=== PATIENT | female | born 1970 | race Caucasian/White ===

== ENCOUNTER → 2017-08-02 | Outpatient (CLI) | payer OTHER ==
[2017-08-02 10:22] LABS: ESTIMATED AVERAGE GLUCOSE 100 mg/dl; HA1C FLAG Normal (Normal)
[2017-08-02 10:30] LABS: BLOOD UREA NITROGEN 14 mg/dl (7-18); BUN/CREATININE RATIO 16.7 (10-20); CALCIUM 8.8 mg/dl (8.5-10.1); CARBON DIOXIDE 26 mmol/L (21-32); CHLORIDE 107 mmol/L (98-107); CREATININE 0.82 mg/dl (0.60-1.20); GLUCOSE 87 mg/dl (70-99); POTASSIUM 4.1 mmol/L (3.5-5.1); SODIUM 136 mmol/L (136-145)
== END | disposition home or self-care (01) ==
LOC: C.LAB1850 07:13
PROVIDERS: ATTEND Family Medicine
DX: R73.9 Hyperglycemia, unspecified (principal)

== ENCOUNTER 2019-06-13 15:02 | Inpatient (IN) ==
[2019-06-13] MEDS ORDERED: SODIUM CHLORIDE 0.9% 1000ML 1,000 ML IV ONE (15:34)
[2019-06-13] MEDS ORDERED: ONDANSETRON INJ 2 MG/ML 2 ML VIAL IV STA (15:34)
--- NOTE | 2019-06-13 15:39 | Emergency Department Note ---
History of Present Illness General Chief complaint: Abdominal Pain Stated complaint: SEVERE STOMACH PAIN, NAUSEA, VOMITING, CHILLS Time Seen by Provider: 06/13/19 15:26 History of Present Illness Maximum Pain Intensity: 6 This 49-year-old female presents the ER with chief complaint of nausea and vomiting which started this afternoon after she went home from work. Patient states that she left work around 130 when she went outside she felt hot and clammy. She states that she went home and had some abdominal cramping and had one bowel movement and got nauseated and vomited. The patient has not vomited since that time. The patient states that she had a similar episode on Sunday. Patient denies any history of heartburn or reflux. The patient states that her stomach is usually like "iron" she does admit that she was on Tamiflu last week for influenza. Home Medications Home Medications Medication Instructions Recorded Confirmed Type metformin 500 mg tablet 500 mg PO DAILY #90 tab 05/22/19 06/13/19 Rx multivitamin,[id number] 1 tab PO DAILY 06/04/19 06/13/19 History tablet Allergies Allergy/AdvReac Type Severity Reaction Status Date / Time [id number] Allergy Unknown Unknown Uncoded 06/13/19 15:57 Past Med/Surg History Family History Mother Diabetes Father Multiple sclerosis Social History Preferred Language: Stateless Communication Ability: Effective Visual Impairment: No Limitations Hearing Ability: Normal marital status: Single Current Living Situation: Significant Other current occupational status: employed current occupation: DIRECTOR MANAGEMENT Feels Safe at Home: Yes Smoking Status: Current some day smoker Tobacco Type: cigars ; Age Started Using Tobacco: 47 ; Cigarettes Per Day: TWICE A WEEK ; Hx Alcohol Use: Yes Alcohol type: hard liquor Alcohol Intake Frequency: Weekly Hx Substance Use: No Childhood Exposure to Second-Hand Smoke: Yes Dental Care, Regularly: Yes Physical Activity Frequency: Does not Exercise Seatbelt Use: always Sunscreen Use: Yes Review of Systems A total of 10 systems reviewed and were otherwise negative Physical Exam Vital Signs Vital Signs - 24 hr 06/13/19 15:13 06/13/19 15:49 06/13/19 17:03 Temperature 36.4 C L Temperature Source Oral Sepsis Recent Fever Within 48 Hours No Sepsis Action Taken by Nursing No Action Required Pulse Rate 76 76 Pulse Rate [Apical] 77 Pulse Rate from SpO2 Sensor Pulse Rhythm Regular Pulse Rhythm [Apical] Regular Respiratory Rate 18 18 20 Respiratory Effort / Characteristics Non-Labored Spontaneous Non-Labored Respiratory Depth Normal Normal Respiratory Pattern Regular Blood Pressure 158/104 H Blood Pressure [Right Arm] 129/81 Blood Pressure Mean 122 Blood Pressure Mean [Right Arm] 97 Blood Pressure Position Sitting Pulse Oximetry 98 98 96 Oxygen Delivery Method Room Air Room Air Room Air 06/13/19 18:11 06/13/19 18:30 06/13/19 19:00 Temperature Temperature Source Sepsis Recent Fever Within 48 Hours Sepsis Action Taken by Nursing Pulse Rate 80 79 76 Pulse Rate [Apical] Pulse Rate from SpO2 Sensor 78 76 75 Pulse Rhythm Pulse Rhythm [Apical] Respiratory Rate 21 20 20 Respiratory Effort / Characteristics Respiratory Depth Respiratory Pattern Blood Pressure 133/83 126/87 133/88 Blood Pressure [Right Arm] Blood Pressure Mean 99 100 103 Blood Pressure Mean [Right Arm] Blood Pressure Position Pulse Oximetry 94 95 96 Oxygen Delivery Method Room Air 06/13/19 19:31 Temperature Temperature Source Sepsis Recent Fever Within 48 Hours Sepsis Action Taken by Nursing Pulse Rate 80 Pulse Rate [Apical] Pulse Rate from SpO2 Sensor 79 Pulse Rhythm Pulse Rhythm [Apical] Respiratory Rate 24 Respiratory Effort / Characteristics Respiratory Depth Respiratory Pattern Blood Pressure 152/97 H Blood Pressure [Right Arm] Blood Pressure Mean 115 Blood Pressure Mean [Right Arm] Blood Pressure Position Pulse Oximetry 99 Oxygen Delivery Method GENERAL: 49-year-old female appears in no acute distress. MENTAL Status: Alert and oriented x3. MOUTH: Mucosa is moist NECK: Supple, no lymphadenopathy noted. No carotid bruits noted. LUNGS: Clear auscultation without wheezes rales or rhonchi. CARDIAC: Regular rate and rhythm without murmur. Pulses is full and equal throughout. BACK: No CVA tenderness noted. ABDOMEN: Positive bowel sounds all 4 quadrants. Soft, tenderness palpation in the epigastric region otherwise nontender to palpation without organomegaly or masses. EXTREMITIES: No cyanosis or edema noted. Course Administered Medications Ioversol (Optiray 320 100ml) 93 ml IV ONCE PRN PRN Reason: Interaction Checking Stop: 06/17/19 19:29 Last Admin: 06/13/19 19:32 Dose: 93 ml Documented by: [id number] Discontinued Medications Sodium Chloride (Nss 1000ml) 1,000 mls @ 999 mls/hr IV .Q1H1M ONE Stop: 06/13/19 16:34 Last Infusion: 06/13/19 16:50 Dose: 0 mls/hr Documented by: [id number] Admin: 06/13/19 15:42 Dose: 999 mls/hr Documented by: [id number] Ondansetron HCl (Zofran) 4 mg IV NOW STA Stop: 06/13/19 15:35 Last Admin: 06/13/19 15:42 Dose: 4 mg Documented by: [id number] Medical Decision Making Differential Diagnosis Gastritis, GERD, peptic ulcer disease Medical Records Attestation: I reviewed the patient's medical records. Home Medications Current Medication List: was personally reviewed by me Laboratory Data Attestation: I reviewed the patient's lab results. Result diagrams: 06/13/19 15:41 06/13/19 15:41 Lab Results 06/13/19 06/13/19 06/13/19 Range/Units 15:41 15:41 16:25 WBC 21.08 H (4.8-10.8) K/uL RBC 4.65 (4.2-5.4) M/uL Hgb 14.6 (12.0-16.0) g/dL Hct 41.8 (37-47) % MCV 89.9 (80-100) fL MCH 31.4 (25-34) pg MCHC 34.9 (32-36) g/dL RDW Std Deviation 43.0 (36.4-46.3) fL RDW Coeff of Gem 13.2 (11.5-14.5) % Plt Count 351 (130-400) K/uL MPV 9.1 (7.4-10.4) fL Immature Gran % (Auto) 0.3 % Neut % (Auto) 84.9 % Lymph % (Auto) 10.1 % [place] % (Auto) 4.0 % Eos % (Auto) 0.6 % Baso % (Auto) 0.1 % Immature Gran # (Auto) 0.07 H (0.00-0.02) K/uL Neut # (Auto) 17.88 H (1.4-6.5) K/uL Lymph # (Auto) 2.13 (1.2-3.4) K/uL [place] # (Auto) 0.85 H (0.11-0.59) K/uL Eos # (Auto) 0.12 (0-0.5) K/uL Baso # (Auto) 0.03 (0-0.2) K/uL Sodium 139 (136-145) mmol/L Potassium 3.9 (3.5-5.1) mmol/L Chloride 109 H (98-107) mmol/L Carbon Dioxide 26 (21-32) mmol/L Anion Gap 4.0 (3-11) BUN 24 H (7-18) mg/dl Creatinine 1.17 (0.6-1.2) mg/dl Est Cr Clr Drug Dosing 76.7 ml/min Est GFR ( Amer) 64.3 Est GFR (Non-Af Amer) 55.4 BUN/Creatinine Ratio 20.3 H (10-20) Glucose 110 H (70-99) mg/dl Calcium 9.0 (8.5-10.1) mg/dl Total Bilirubin 0.4 (0.2-1) mg/dl AST 83 H (15-37) U/L ALT 57 (12-78) U/L Alkaline Phosphatase 78 (45-117) U/L Total Protein 7.6 (6.4-8.2) gm/dl Albumin 3.5 (3.4-5.0) gm/dl Globulin 4.1 H (2.5-4.0) gm/dl Albumin/Globulin Ratio 0.9 (0.9-2) Lipase 139 (73-393) U/L Urine Color Yellow Urine Appearance Clear (Clear) Urine pH 5.5 (4.5-7.5) Ur Specific [place] 1.020 (1.000-1.030) Urine Protein Trace H (Negative) Urine Glucose (UA) Negative (Negative) Urine Ketones Negative (Negative) Urine Blood 1+ H (Negative) Urine Nitrite Negative (Negative) Urine Bilirubin Negative (Negative) Urine Urobilinogen Negative (Negative) Ur Leukocyte Esterase Negative (Negative) Urine RBC 0-4 (0-4) /hpf Urine WBC 0-5 (0-5) /hpf Ur Epithelial Cells >30 H (0-5) /lpf Urine Crystals Calcium Oxalate A (None Prsent) Calcium Oxalate Crystal Present A (None Prsent) Urine Bacteria Negative (Negative) Hyaline Casts 0-5 (0-5) /lpf Imaging Data My Impression: [place]stone noted Radiologist's Impression: CT SCAN OF THE ABDOMEN AND PELVIS WITH IV CONTRAST CLINICAL HISTORY: Nausea and vomiting. Leukocytosis. COMPARISON STUDY: KUB dated 02/24/2016. TECHNIQUE: Following the IV administration of 93 cc of Optiray 320, CT scan of the abdomen and pelvis is performed from the lung bases to the proximal femora. Images are reviewed in the axial, sagittal, and coronal planes. IV contrast was administered without complication. Oral contrast was utilized. A dose lowering technique was utilized adhering to the principles of ALARA. CT DOSE: 1035.98 mGycm FINDINGS: Lung bases: The heart is normal in size and without pericardial effusion. A fat- containing Bochdalek hernia is noted at the left lung base. The lung bases are clear noting bibasilar scarring/atelectasis. There is a tiny hiatal hernia. Liver: The contrast-enhanced liver is enlarged, measuring 19 cm in length. The liver is otherwise normal in contour and attenuation. There is no intrahepatic biliary ductal dilatation. The hepatic veins and portal veins are patent. Gallbladder: There are small calcified gallstones, with no clear CT evidence of acute cholecystitis. Question a stone in the common bile duct at the head of the pancreas on axial image #180. Spleen: Normal in size and attenuation. Pancreas: Unremarkable. Adrenal glands: Unremarkable. Kidneys: The contrast enhanced kidneys are normal in size and without hydronephr osis. Renal enhancement appears heterogeneous bilaterally. There is a retroaortic left renal vein. Abdominal vasculature: The abdominal aorta is normal in course and caliber. Bowel: There is no bowel obstruction. Enteric contrast reaches the distal colon. The appendix is grossly unremarkable but incompletely visualized. Peritoneum: There is no intraperitoneal free air or abdominal ascites. Lymphadenopathy: None. Pelvic viscera: Although decompressed, the bladder wall appears thickened and hyperemic and there is pericystic inflammation. Uterine fibroids are suspected. An intrauterine device is in place. There are bilateral ovarian follicles. Skeletal structures: There is mild lumbosacral spondylosis. Mild degenerative sclerosis is noted in the sacroiliac joints. No lytic or blastic lesions are seen. IMPRESSION: 1. Findings suggest cystitis. Additionally, renal enhancement appears heterogeneous bilaterally. This could be seen in setting of pyelonephritis. Correlation with clinical findings and urinalysis will be required. 2. Cholelithiasis without clear CT evidence of acute cholecystitis. 3. A calcified gallstone is suspected within the distal common bile duct at the head of the pancreas. If there is clinical concern for acute cholecystitis an ultrasound of the right upper quadrant should be considered. 4. Hepatomegaly. 5. Additional findings as above. Electronically signed by: Ricco Torres M.D. 06/13/2019 8:14 PM Dictated: 06/13/191955 Transcribed: 06/13/191955 Blood Pressure Blood Pressure Findings: Elevated blood pressure Blood Pressure Disposition: elevated BP felt to be situational MDM Narrative Patient was evaluated. IV access was obtained. The patient was given 1 L normal saline wide open. She was given Zofran 4 mg IV push for nausea. CBC and differential, renal profile, LFTs and lipase levels were ordered. The patient's white count was 21,000, BUN was elevated at 24. LFTs were unremarkable. Lipase was normal. Urinalysis was. Due to the elevated white count of 21,[address] of the abdomen and pelvis was ordered and interpreted as above with a stone noted in the distal common bile duct. There is also evidence of acute cystitis and suspicion for pyelonephritis. Urinalysis revealed calcium oxalate, trace of blood but no nitrates or bacteria at this time. Culture is pending. I discussed the case with Dr. Davis who felt the patient needed to be admitted for definite etiology of the elevated white count. The patient was informed of treatment plan. [facility] hospitalist was consulted for admission. Impression & Plan Elevated WBC count, Pyelonephritis, Bile duct calculus Discharge Plan Visit Data Chief Complaint: Abdominal Pain Stated Complaint: SEVERE STOMACH PAIN, NAUSEA, VOMITING, CHILLS ED Provider: Ricco Davis ED Midlevel Provider: Renée Connor Discharge Problem: Elevated WBC count, Pyelonephritis, Bile duct calculus Patient Disposition: Being Evaluated by Hospitalist Condition: Good Forms Stand Alone Forms: Call Back Authorization, My [facility] Prescriptions Prescriptions: No Action metformin 500 mg tablet 500 mg PO DAILY Qty: 90 RF: 1 Complete Multivitamin tablet 1 tab PO DAILY RF: 0 Referrals Referrals: Leonora Rider MD [Primary Care Provider] -
[2019-06-13 15:50] LABS: Basophils # (auto) 0.03 K/uL (0-0.2); Basophils % (auto) 0.1 %; Eosinophils # (auto) 0.12 K/uL (0-0.5); Eosinophils % (auto) 0.6 %; Hematocrit (blood only) 41.8 % (37-47); Hemoglobin 14.6 g/dL (12.0-16.0); Immature Granulocytes # (auto) 0.07 K/uL (0.00-0.02); Immature Granulocytes % (auto) 0.3 %; Lymphocytes # (auto) 2.13 K/uL (1.2-3.4); Lymphocytes % (auto) 10.1 %; Mean Corpuscular Hemoglobin 31.4 pg (25-34); Mean Corpuscular Hgb Conc 34.9 g/dL (32-36); Mean Corpuscular Volume 89.9 fL (80-100); Mean Platelet Volume 9.1 fL (7.4-10.4); Monocytes # (auto) 0.85 K/uL (0.11-0.59); Neutrophils # (auto) 17.88 K/uL (1.4-6.5); Neutrophils % (auto) 84.9 %; Platelet Count 351 K/uL (130-400); RDW Coefficient of Variation 13.2 % (11.5-14.5); Red Blood Count 4.65 M/uL (4.2-5.4); White Blood Count 21.08 K/uL (4.8-10.8)
[2019-06-13 16:06] LABS: Albumin Level 3.5 gm/dl (3.4-5.0); BUN Creatinine Ratio 20.3 (10-20); Creatinine Clr Calc Pharmacy 76.7 ml/min; Est GFR (African American) 64.3; Est GFR (Non-African American) 55.4; Potassium 3.9 mmol/L (3.5-5.1)
[2019-06-13 16:16] LABS: Albumin Globulin Ratio 0.9 (0.9-2); Bilirubin,Total 0.4 mg/dl (0.2-1); Globulin 4.1 gm/dl (2.5-4.0); Total Protein 7.6 gm/dl (6.4-8.2)
[2019-06-13 16:34] LABS: Appearance Urine Clear (Clear); Bilirubin Urine Negative (Negative); Blood Urine 1+ (Negative); Color Urine Yellow; Glucose Urine UA Negative (Negative); Ketones Urine Negative (Negative); Leukocyte Esterase Urine Negative (Negative); Nitrite Urine Negative (Negative); Protein Urine Trace (Negative); Urobilinogen Urine Negative (Negative); pH Urine 5.5 (4.5-7.5)
[2019-06-13 16:50] LABS: Bacteria Urine Negative (Negative); Epithelial Cell Urine >30 /lpf (0-5); Hyaline Casts Urine 0-5 /lpf (0-5); RBC Urine 0-4 /hpf (0-4); WBC Urine 0-5 /hpf (0-5)
[2019-06-13 16:51] LABS: Calcium Oxalate Crystals Urine Present (None Prsent)
[2019-06-13] MEDS ORDERED: IOVERSOL 100ml IV PRN (19:30)
--- NOTE | 2019-06-13 20:16 | CT Scan Report ---
CT SCAN OF THE ABDOMEN AND PELVIS WITH IV CONTRAST CLINICAL HISTORY: Nausea and vomiting. Leukocytosis. COMPARISON STUDY: KUB dated 02/24/2016. TECHNIQUE: Following the IV administration of 93 cc of Optiray 320, CT scan of the abdomen and pelvi s is performed from the lung bases to the proximal femora. Images are reviewed in the axial, sagittal , and coronal planes. IV contrast was administered without complication. Oral contrast was utilized. A dose lowering technique was utilized adhering to the principles of ALARA. CT DOSE: 1035.98 mGycm FINDINGS: Lung bases: The heart is normal in size and without pericardial effusion. A fat-containing Bochdalek hernia is noted at the left lung base. The lung bases are clear noting bibasilar scarring/atelectasis . There is a tiny hiatal hernia. Liver: The contrast-enhanced liver is enlarged, measuring 19 cm in length. The liver is otherwise nor mal in contour and attenuation. There is no intrahepatic biliary ductal dilatation. The hepatic veins and portal veins are patent. Gallbladder: There are small calcified gallstones, with no clear CT evidence of acute cholecystitis. Question a stone in the common bile duct at the head of the pancreas on axial image #180. Spleen: Normal in size and attenuation. Pancreas: Unremarkable. Adrenal glands: Unremarkable. Kidneys: The contrast enhanced kidneys are normal in size and without hydronephrosis. Renal enhanceme nt appears heterogeneous bilaterally. There is a retroaortic left renal vein. Abdominal vasculature: The abdominal aorta is normal in course and caliber. Bowel: There is no bowel obstruction. Enteric contrast reaches the distal colon. The appendix is farhana ssly unremarkable but incompletely visualized. Peritoneum: There is no intraperitoneal free air or abdominal ascites. Lymphadenopathy: None. Pelvic viscera: Although decompressed, the bladder wall appears thickened and hyperemic and there is pericystic inflammation. Uterine fibroids are suspected. An intrauterine device is in place. There ar e bilateral ovarian follicles. Skeletal structures: There is mild lumbosacral spondylosis. Mild degenerative sclerosis is noted in t he sacroiliac joints. No lytic or blastic lesions are seen. IMPRESSION: 1. Findings suggest cystitis. Additionally, renal enhancement appears heterogeneous bilaterally. This could be seen in setting of pyelonephritis. Correlation with clinical findings and urinalysis will b e required. 2. Cholelithiasis without clear CT evidence of acute cholecystitis. 3. A calcified gallstone is suspected within the distal common bile duct at the head of the pancreas. If there is clinical concern for acute cholecystitis an ultrasound of the right upper quadrant shoul d be considered. 4. Hepatomegaly. 5. Additional findings as above. Electronically signed by: Ricco Torres M.D. 06/13/2019 8:14 PM
[2019-06-13] MEDS ORDERED: PIPERACILLIN/TAZOBACTAM 3.375 GM/115 ML BAG IV STA (20:54)
[2019-06-13] MEDS ORDERED: PIPERACILL/TAZOBAC CONSULT ACTIVE PRN (20:54)
--- NOTE | 2019-06-13 22:08 | Ultrasound Report ---
ULTRASOUND RIGHT UPPER QUADRANT ABDOMEN CLINICAL HISTORY: Cholelithiasis and choledocholithiasis seen by CT.. COMPARISON STUDY: Abdominal CT dated 06/13/2019. TECHNIQUE: Real-time, grayscale, and color flow sonography of the right upper quadrant of the abdomen was performed. Images are reviewed in the transverse and longitudinal planes. FINDINGS: Liver: The liver is enlarged, measuring over 19 cm in length. Liver is heterogeneous and echotexture. There is no intrahepatic biliary ductal dilatation. The main portal vein is patent. Gallbladder: Shadowing gallstones are noted. Focal adenomyomatosis is noted in the fundal region. The re is no gallbladder wall thickening or pericholecystic fluid. A sonographic Oates's sign is reporte dly absent. The common bile duct measures up to 0.7 cm in diameter. Pancreas: Visualized portions of the pancreatic head and body are normal in appearance. The splenic v ein is patent. Right kidney: Survey images of the right kidney demonstrate normal size and echotexture. There is no hydronephrosis. Ascites: None. IMPRESSION: 1. Cholelithiasis without sonographic evidence of acute cholecystitis. 2. The common bile duct measures up to 7 mm. The common duct stone questioned by CT is not visualized by ultrasound. 3. Mild hepatomegaly. Electronically signed by: Ricco Torres M.D. 06/13/2019 10:07 PM
--- NOTE | 2019-06-13 22:45 | History & Physical Report ---
Date of Service June 13, 2019 Assessment & Plan (1) Nausea and vomiting: Nausea vomiting/epigastric and right upper quadrant abdominal pain/hepatomegaly/common bile duct dilatation- CT initially questioned possible bile duct stone, however, not confirmed on ultrasound. Bile duct measured up to 7 mm in size. Symptoms are suggestive of biliary colic. We will order a HIDA scan to be performed in a.m. tomorrow. Zofran 4 mg IV every 6 hours PRN. Continue Zosyn 4.5g IV q8h begun in the ED. Famotidine 20 mg IV every [address] scan also questions possibility of cystitis and bilateral pyelonephritis, however, patient has no urinary symptoms. Will pursue GI work-up as noted above. consult gastroenterology if need for ERCP. Present on Admission?: Yes (2) Epigastric abdominal pain: See above Present on Admission?: Yes (3) Common bile duct dilatation: See above Present on Admission?: Yes (4) Hepatomegaly: Mildly elevated AST of 83. No report of fatty liver on imaging. Present on Admission?: Yes (5) Hyperglycemia: Hold metformin. Present on Admission?: Yes History of Present Illness Chief Complaint: The patient presents to the emergency department with complaint of acute onset of severe epigastric and right upper quadrant abdominal pain with nausea vomiting that began at work today, and worsened after she went home from work. Primary Care Provider: Leonora Rider MD The patient is a 49-year-old female who reports that she was at work today, when she started feel hot and clammy. She went home from work, and at home developed some abdominal cramping, had a bowel movement, and then felt nauseated and vomited. She had similar episode within the past week. She reports that after she vomits, she feels somewhat improved. She was on Tamiflu last week for influenza. She has not had any questionable food intakes. She denies any recent travels or sick exposures. Allergies Allergy/AdvReac Type Severity Reaction Status Date / Time apple Allergy Unknown Verified 06/14/19 01:04 peach Allergy Unknown Verified 06/14/19 01:04 strawberry Allergy Unknown Verified 06/14/19 01:04 [id number] Allergy Unknown Unknown Uncoded 06/13/19 15:57 Home Medications Home Medications Medication Instructions Recorded Confirmed Type metformin 500 mg tablet 500 mg PO DAILY #90 tab 05/22/19 06/13/19 Rx multivitamin,[id number] 1 tab PO DAILY 06/04/19 06/13/19 History tablet Past Med/Surg History Family History Mother Diabetes Father Multiple sclerosis Social History Preferred Language: Serbian Communication Ability: Effective Visual Impairment: No Limitations Hearing Ability: Normal Public Housing Interviewer Required: No Beliefs That Will Affect Care: None marital status: Single Current Living Situation: Significant Other current occupational status: employed current occupation: DIRECTOR MANAGEMENT Feels Safe at Home: Yes Safety Concerns: Feels Safe At This Time Smoking Status: Light tobacco smoker Tobacco Type: cigars ; Age Started Using Tobacco: 47 ; Cigarettes Per Day: TWICE A WEEK ; Do You Dip or Chew Tobacco: No ; Tobacco Cessation Education Requested by Patient: No Hx Alcohol Use: Yes (Social) Alcohol type: beer and wine Alcohol Intake Frequency: Weekly Hx Substance Use: No Childhood Exposure to Second-Hand Smoke: Yes Dental Care, Regularly: Yes Physical Activity Frequency: Does not Exercise Seatbelt Use: always Sunscreen Use: Yes Review of Systems Review of Systems: The patient denies chest pain, palpitations, shortness of breath, dyspnea on exertion, cough, lower extremity swelling, sore throat, blood in urine or stool, dysuria, urinary frequency or urgency, headache, memory loss, loss of consciousness, rash, abnormal bruising or bleeding, imbalance, focal or generalized weakness, numbness or tingling in arms or legs, generalized arthralgias or myalgias, back or neck pain, or night sweats. The review of systems is otherwise negative other than for that already noted above, and at least 10 systems have been reviewed. Physical Exam Physical Exam: The patient is awake, alert and oriented 3, well developed and well nourished, normocephalic and atraumatic, lying in bed and in no acute distress. HEENT--PERRL, EOMI, mucous membranes and oropharynx dry. Neck--supple. No JVD. No bruits. Thyroid normal, trachea midline, no adenopathy. Heart--normal S1 and S2. No murmurs, rubs or gallops. Lungs--clear bilaterally, no respiratory distress, no accessory muscle use. Abdomen--normal bowel sounds and soft. Nontender. Nondistended. Extremities--no cyanosis or clubbing. No edema. There are good distal pulses b/l. Dermatologic--normal skin turgor, normal color, no abnormal lymph nodes, no rash. Neurologic--cranial nerves II through XII grossly intact. Rheumatologic--normal range of motion. Psychiatric--normal affect. Results & Data Vital Signs (Past 12 Hours) Vital Signs Temp Pulse Pulse Resp BP BP Pulse Ox 06/13/19 20:58 74 18 139/90 97 06/13/19 19:31 80 24 152/97 H 99 06/13/19 19:00 76 20 133/88 96 06/13/19 18:30 79 20 126/87 95 06/13/19 18:11 80 21 133/83 94 06/13/19 17:03 77 20 129/81 96 06/13/19 15:49 76 18 98 06/13/19 15:13 97.5 F L 76 18 158/104 H 98 Laboratory Results Laboratory Results WBC 21.08 K/uL (4.8-10.8) H 06/13/19 15:41 RBC 4.65 M/uL (4.2-5.4) 06/13/19 15:41 Hgb 14.6 g/dL (12.0-16.0) 06/13/19 15:41 Hct 41.8 % (37-47) 06/13/19 15:41 MCV 89.9 fL (80-100) 06/13/19 15:41 MCH 31.4 pg (25-34) 06/13/19 15:41 MCHC 34.9 g/dL (32-36) 06/13/19 15:41 RDW Std Deviation 43.0 fL (36.4-46.3) 06/13/19 15:41 RDW Coeff of Gem 13.2 % (11.5-14.5) 06/13/19 15:41 Plt Count 351 K/uL (130-400) 06/13/19 15:41 MPV 9.1 fL (7.4-10.4) 06/13/19 15:41 Immature Gran % (Auto) 0.3 % 06/13/19 15:41 Neut % (Auto) 84.9 % 06/13/19 15:41 Lymph % (Auto) 10.1 % 06/13/19 15:41 Rogers % (Auto) 4.0 % 06/13/19 15:41 Eos % (Auto) 0.6 % 06/13/19 15:41 Baso % (Auto) 0.1 % 06/13/19 15:41 Immature Gran # (Auto) 0.07 K/uL (0.00-0.02) H 06/13/19 15:41 Neut # (Auto) 17.88 K/uL (1.4-6.5) H 06/13/19 15:41 Lymph # (Auto) 2.13 K/uL (1.2-3.4) 06/13/19 15:41 Rogers # (Auto) 0.85 K/uL (0.11-0.59) H 06/13/19 15:41 Eos # (Auto) 0.12 K/uL (0-0.5) 06/13/19 15:41 Baso # (Auto) 0.03 K/uL (0-0.2) 06/13/19 15:41 Sodium 139 mmol/L (136-145) 06/13/19 15:41 Potassium 3.9 mmol/L (3.5-5.1) 06/13/19 15:41 Chloride 109 mmol/L (98-107) H 06/13/19 15:41 Carbon Dioxide 26 mmol/L (21-32) 06/13/19 15:41 Anion Gap 4.0 (3-11) 06/13/19 15:41 BUN 24 mg/dl (7-18) H 06/13/19 15:41 Creatinine 1.17 mg/dl (0.6-1.2) 06/13/19 15:41 Est Cr Clr Drug Dosing 76.7 ml/min 06/13/19 15:41 Est GFR ( Amer) 64.3 06/13/19 15:41 Est GFR (Non-Af Amer) 55.4 06/13/19 15:41 BUN/Creatinine Ratio 20.3 (10-20) H 06/13/19 15:41 Glucose 110 mg/dl (70-99) H 06/13/19 15:41 Calcium 9.0 mg/dl (8.5-10.1) 06/13/19 15:41 Total Bilirubin 0.4 mg/dl (0.2-1) 06/13/19 15:41 AST 83 U/L (15-37) H 06/13/19 15:41 ALT 57 U/L (12-78) 06/13/19 15:41 Alkaline Phosphatase 78 U/L (45-117) 06/13/19 15:41 Total Protein 7.6 gm/dl (6.4-8.2) 06/13/19 15:41 Albumin 3.5 gm/dl (3.4-5.0) 06/13/19 15:41 Globulin 4.1 gm/dl (2.5-4.0) H 06/13/19 15:41 Albumin/Globulin Ratio 0.9 (0.9-2) 06/13/19 15:41 Lipase 139 U/L (73-393) 06/13/19 15:41 Urine Color Yellow 06/13/19 16:25 Urine Appearance Clear (Clear) 06/13/19 16:25 Urine pH 5.5 (4.5-7.5) 06/13/19 16:25 Ur Specific [place] 1.020 (1.000-1.030) 06/13/19 16:25 Urine Protein Trace (Negative) H 06/13/19 16:25 Urine Glucose (UA) Negative (Negative) 06/13/19 16:25 Urine Ketones Negative (Negative) 06/13/19 16:25 Urine Blood 1+ (Negative) H 06/13/19 16:25 Urine Nitrite Negative (Negative) 06/13/19 16:25 Urine Bilirubin Negative (Negative) 06/13/19 16:25 Urine Urobilinogen Negative (Negative) 06/13/19 16:25 Ur Leukocyte Esterase Negative (Negative) 06/13/19 16:25 Urine RBC 0-4 /hpf (0-4) 06/13/19 16:25 Urine WBC 0-5 /hpf (0-5) 06/13/19 16:25 Ur Epithelial Cells >30 /lpf (0-5) H 06/13/19 16:25 Urine Crystals Calcium Oxalate (None Prsent) A 06/13/19 16:25 Calcium Oxalate Crystal Present (None Prsent) A 06/13/19 16:25 Urine Bacteria Negative (Negative) 06/13/19 16:25 Hyaline Casts 0-5 /lpf (0-5) 06/13/19 16:25 Diagnostic Findings [place], [place] [phone] CT Scan Report Patient: LUIS ALFREDO HOLMAN Date: 06/13/19 MR#: [id number]: [address] Acct ID:[id number]: Date: [address] Zip: [place] [address] Age: 49Location: ED Sex: F Room/Bed: Att Phy:Diagnosis: SEVERE STOMACH PAIN, NAUSEA, VOMITING, CHILLS Samara Phy: Leonora Rider MDServbigg Date: 06/13/19 Fam Phy:Interpreting Phy: Ricco Torres MD Admit Phy: Ordering Phy: Renée Connor PA-C cc: ~ CT SCAN OF THE ABDOMEN AND PELVIS WITH IV CONTRAST CLINICAL HISTORY: Nausea and vomiting. Leukocytosis. COMPARISON STUDY: KUB dated 02/24/2016. TECHNIQUE: Following the IV administration of 93 cc of Optiray 320, CT scan of the abdomen and pelvis is performed from the lung bases to the proximal femora. Images are reviewed in the axial, sagittal, and coronal planes. IV contrast was administered without complication. Oral contrast was utilized. A dose lowering technique was utilized adhering to the principles of ALARA. CT DOSE: 1035.98 mGycm FINDINGS: Lung bases: The heart is normal in size and without pericardial effusion. A fat- containing Bochdalek hernia is noted at the left lung base. The lung bases are clear noting bibasilar scarring/atelectasis. There is a tiny hiatal hernia. Liver: The contrast-enhanced liver is enlarged, measuring 19 cm in length. The liver is otherwise normal in contour and attenuation. There is no intrahepatic biliary ductal dilatation. The hepatic veins and portal veins are patent. Gallbladder: There are small calcified gallstones, with no clear CT evidence of acute cholecystitis. Question a stone in the common bile duct at the head of the pancreas on axial image #180. Spleen: Normal in size and attenuation. Pancreas: Unremarkable. Adrenal glands: Unremarkable. Kidneys: The contrast enhanced kidneys are normal in size and without hydronephrosis. Renal enhancement appears heterogeneous bilaterally. There is a retroaortic left renal vein. Abdominal vasculature: The abdominal aorta is normal in course and caliber. Bowel: There is no bowel obstruction. Enteric contrast reaches the distal colon. The appendix is grossly unremarkable but incompletely visualized. Peritoneum: There is no intraperitoneal free air or abdominal ascites. Lymphadenopathy: None. Pelvic viscera: Although decompressed, the bladder wall appears thickened and hyperemic and there is pericystic inflammation. Uterine fibroids are suspected. An intrauterine device is in place. There are bilateral ovarian follicles. Skeletal structures: There is mild lumbosacral spondylosis. Mild degenerative sclerosis is noted in the sacroiliac joints. No lytic or blastic lesions are seen. IMPRESSION: 1. Findings suggest cystitis. Additionally, renal enhancement appears heterogeneous bilaterally. This could be seen in setting of pyelonephritis. Correlation with clinical findings and urinalysis will be required. 2. Cholelithiasis without clear CT evidence of acute cholecystitis. 3. A calcified gallstone is suspected within the distal common bile duct at the head of the pancreas. If there is clinical concern for acute cholecystitis an ultrasound of the right upper quadrant should be considered. 4. Hepatomegaly. 5. Additional findings as above. Electronically signed by: Ricco Torres M.D. 06/13/2019 8:14 PM Dictated: 06/13/191955 Transcribed: 06/13/191955 [place], [place] [phone] Ultrasound Report Patient: LUIS ALFREDO HOLMAN AAdmit Date: 06/13/19 MR#: [id number]: [address] [facility] Acct ID:[id number]: Date: 1970City Zip: [place] [address] Age: 49Location: ED Sex: F Room/Bed: Att Phy:Diagnosis: SEVERE STOMACH PAIN, NAUSEA, VOMITING, CHILLS Samara Phy: Leonora Rider MDService Date: 06/13/19 Fam Phy:Interpreting Phy: Ricco Torres MD Admit Phy: Ordering Phy: Bonifacio Quintero M.D. cc: ~ ULTRASOUND RIGHT UPPER QUADRANT ABDOMEN CLINICAL HISTORY: Cholelithiasis and choledocholithiasis seen by CT.. COMPARISON STUDY: Abdominal CT dated 06/13/2019. TECHNIQUE: Real-time, grayscale, and color flow sonography of the right upper quadrant of the abdomen was performed. Images are reviewed in the transverse and longitudinal planes. FINDINGS: Liver: The liver is enlarged, measuring over 19 cm in length. Liver is heterogeneous and echotexture. There is no intrahepatic biliary ductal dilatation. The main portal vein is patent. Gallbladder: Shadowing gallstones are noted. Focal adenomyomatosis is noted in the fundal region. There is no gallbladder wall thickening or pericholecystic fluid. A sonographic Oates's sign is reportedly absent. The common bile duct measures up to 0.7 cm in diameter. Pancreas: Visualized portions of the pancreatic head and body are normal in appearance. The splenic vein is patent. Right kidney: Survey images of the right kidney demonstrate normal size and echotexture. There is no hydronephrosis. Ascites: None. IMPRESSION: 1. Cholelithiasis without sonographic evidence of acute cholecystitis. 2. The common bile duct measures up to 7 mm. The common duct stone questioned by CT is not visualized by ultrasound. 3. Mild hepatomegaly. Electronically signed by: Ricco Torres M.D. 06/13/2019 10:07 PM Dictated: 06/13/192203 Transcribed: 06/13/192203 Code Status & VTE Plan Code Status Full code VTE Prophylaxis Plan VTE Prophylaxis will be ordered: Yes PG Care Time/CCT Total # of Minutes Spent Total Time Spent with Patient: Total time spent is greater than 50% in c oordination of care (as documented) at patient's floor/unit and/or counseling patient:
[2019-06-14] MEDS ORDERED: ONDANSETRON INJ 2 MG/ML 2 ML VIAL IV PRN ×2 (00:28→17:04)
[2019-06-14] MEDS: NSS + 20MEQ KCL 20 MEQ/1,000 ML BAG IV SCH ×3 (00:57→21:00)
[2019-06-14] MEDS: FAMOTIDINE 20 MG in SYRINGE 3 ML IV SCH ×3 (01:07→21:00)
[2019-06-14] MEDS: PIPERACILLIN/TAZOBACTAM 4.5 GM in DEXTROSE 5% 100 ML IV SCH ×3 (01:07→17:32)
[2019-06-14 09:36] LABS: Albumin Globulin Ratio 0.8 (0.9-2); BUN Creatinine Ratio 14.3 (10-20); Bilirubin,Total 1.1 mg/dl (0.2-1); Calcium 8.6 mg/dl (8.5-10.1); Creatinine Clr Calc Pharmacy 87.2 ml/min; Est GFR (Non-African American) 64.7; Globulin 3.6 gm/dl (2.5-4.0); Total Protein 6.6 gm/dl (6.4-8.2)
--- NOTE | 2019-06-14 12:57 | Magnetic Resonance Report ---
Study: MRCP. HISTORY:, Dilated common bile duct FINDINGS: Unremarkable liver spleen. Pancreas is unremarkable. Probable small gallstone at the gallbladder fundus. Bladder ductal system is unremarkable. No evidence for choledocholithiasis. IMPRESSION: 1. Small gallstone at the gallbladder fundus. 2. Unremarkable biliary ductal system. 3. No evidence for choledocholithiasis. Electronically signed by: Satya Connor M.D. 06/14/2019 12:55 PM
--- NOTE | 2019-06-14 15:37 | Hospitalist Progress Note ---
Date of Service June 14, 2019 Assessment & Plan (1) Nausea and vomiting: Nausea vomiting/epigastric and right upper quadrant abdominal pain/hepatomegaly/common bile duct dilatation- CT initially questioned possible bile duct stone, however, not confirmed on ultrasound. Bile duct measured up to 7 mm in size. However, MRCP showed a small gallstone at the gallbladder fundus and an unremarkeable biliary ductal system, no evidence for choledocholithiasis A HIDA scan to measure EF would not be able to be done until Sunday Zofran 4 mg IV every 6 hours PRN. Continue Zosyn 4.5g IV q8h begun in the ED. Famotidine 20 mg IV every 12 hours. GI consulted - likely transient blockage of CBD - consulted surgery On CT additionally: Findings suggest cystitis. Additionally, renal enhancement appears heterogeneous bilaterally. This could be seen in setting of pyelonephritis - - patient is not having any symptoms, will continue to monitor. (2) Epigastric abdominal pain: See above (3) Hepatomegaly: AST and ALT increased to 223 adn 316, bili is 1.1 No report of fatty liver on imaging but liver is enlarged Per GI - liver likely enlarged due to metabolic syndrome. LFTs will likely trend down as patient is clinically improved, probably due to transient duct blockage from stone Repeat LFTs am (4) Hyperglycemia: Hold metformin. BSGs stable (5) DVT prophylaxis: SCDs Subjective Ms. Martinez is no longer having nausea or vomiting. She has some mild RUQ tenderness. She had a few loose stools this morning. Denies any dysuria ROS Constitutional: no chills, aches, sweats or fever Respiratory: no sob,cough, sputum, or wheezing Cardiac: no chest pain, palpitations, edema, orthopnea or lightheadedness GI: see HPI : no dysuria or hesitancy Extremities: no joint pain or weakness Skin: no rash All other systems reviewed and negative Physical Exam Physical Exam: General: no distress Eyes: normal inspection, PERLL Respiratory: chest non tender, clear to auscultation, normal breath sounds, no respiratory distress, no accessory muscle use Cardiac: regular rate and rhythm, no rub or gallop, no murmur, no edema, no jvd GI/: active bowel sounds, no abd pain or tenderness, soft, non distended Extremities: normal range of motion, normal strength, non tender Neuro/Psych: alert and oriented x 3, normal mood and affect Skin: normal color, dry Results & Data Vital Signs (Past 12 Hours) Vital Signs Temp Pulse Resp BP Pulse Ox 06/14/19 08:00 36.9 C 64 18 137/83 97 PG Care Time/CCT Total # of Minutes Spent Total Time Spent with Patient: Total time spent is greater than 50% in coordination of care (as documented) at patient's floor/unit and/or counseling patient:
--- NOTE | 2019-06-14 15:46 | Gastrointestinal Consultation ---
Date of Consultation June 14, 2019 Assessment & Plan (1) Epigastric abdominal pain: likely from gallstones that have passed throught bile duct elevated LFTS---no current evidence of CBD stone on MRCP. LFTS worse today but clinically better so suspect improvement tomorrow. Cause is likely transient blockage of bile duct with stone gallstones--recommend elective cholecystectomy and I consulted surgery hepatomegaly on imaging---likely from metabolic syndrome elevated WBC--afebrile and no pain to suggest cholangitis. continue Abx--HIDA has been ordered for cholecystitis. History of Present Illness Reason for Consultation: gallstones, possible CBD stone Requesting Physician: ED Holman Attending Physician: Elgin Shah MD History of Present Illness cc abd pain HPI Pt 2 weeks ago sore throat and flu like symptoms with flu test pos per patient and on Tamiflu until 06/08. On 06/08 had upper abd pain attack which resolved. Day of admit n/v, upper abd pain, fever, chills. WBC elevated. Mild elevated AST [address] a/p tiny HH, gallstones, possible gallstone in CBD but normal caliber duct, possible cystitis. U/s abd hepatomegaly, gallstone, no CBD stone. MRCP gallstone, no stones in CBD. LFTs worse this am. Minor abd pain 1- 2 vs 6 on admit. No n/v and ate solid diet today. No bloody nor black stools, No change in bowel. Pt with DM Fhx Mother DM Allergies Allergy/AdvReac Type Severity Reaction Status Date / Time apple Allergy Unknown Verified 06/14/19 01:04 peach Allergy Unknown Verified 06/14/19 01:04 strawberry Allergy Unknown Verified 06/14/19 01:04 [id number] Allergy Unknown Unknown Uncoded 06/13/19 15:57 Home Medications Home Medications Medication Instructions Recorded Confirmed Type metformin 500 mg tablet 500 mg PO DAILY #90 tab 05/22/19 06/13/19 Rx multivitamin,[id number]-[id number] 1 tab PO DAILY 06/04/19 06/13/19 History tablet Patient History Family History Mother Diabetes Father Multiple sclerosis Social History Preferred Language: Danish Communication Ability: Effective Visual Impairment: No Limitations Hearing Ability: Normal Method Consultant Required: No Beliefs That Will Affect Care: None marital status: Life Partner Current Living Situation: Significant Other current occupational status: employed current occupation: DIRECTOR MANAGEMENT Feels Safe at Home: Yes Safety Concerns: Feels Safe At This Time Smoking Status: Light tobacco smoker Tobacco Type: cigars ; Age Started Using Tobacco: 47 ; Cigarettes Per Day: TWICE A WEEK ; Do You Dip or Chew Tobacco: No ; Tobacco Cessation Education Requested by Patient: No Hx Alcohol Use: Yes (Social) Alcohol type: beer and wine Alcohol Intake Frequency: Weekly Hx Substance Use: No Childhood Exposure to Second-Hand Smoke: Yes Dental Care, Regularly: Yes Physical Activity Frequency: Does not Exercise Seatbelt Use: always Sunscreen Use: Yes Review of Systems Review of Systems: All systems reviewed & are unremarkable except as noted in HPI & below Physical Exam Constitutional: WD/WN, vitals as above Eyes: PERRL, conjunctivae normal, anicteric sclerae ENMT: external ear and nose normal, oropharynx normal Neck: normal visual inspection and trachea midline Respiratory: normal respiratory effort, lungs clear to auscultation Cardiovascular: RRR, no murmur, no edema Gastrointestinal (Abdomen): normal bowel sounds, soft, nontender, no hepatosplenomegaly Musculoskeletal: no cyanosis or clubbing, extremities motor strength 5/5 Skin: normal turgor Neurologic: PERRL, EOMI, accommodation nl, no face palsy, no dysarthria Psychiatric: A+Ox3, euthymic affect Results & Data Vital Signs (Past 12 Hours) Vital Signs Temp Pulse Resp BP Pulse Ox 06/14/19 08:00 36.9 C 64 18 137/83 97
[2019-06-15] MEDS: PIPERACILLIN/TAZOBACTAM 4.5 GM in DEXTROSE 5% 100 ML IV SCH ×2 (02:49→11:26)
[2019-06-15 06:04] LABS: Basophils # (auto) 0.05 K/uL (0-0.2); Basophils % (auto) 0.6 %; Eosinophils # (auto) 0.22 K/uL (0-0.5); Eosinophils % (auto) 2.5 %; Hematocrit (blood only) 38.3 % (37-47); Immature Granulocytes # (auto) 0.01 K/uL (0.00-0.02); Immature Granulocytes % (auto) 0.1 %; Lymphocytes # (auto) 2.27 K/uL (1.2-3.4); Lymphocytes % (auto) 26.1 %; Mean Corpuscular Hemoglobin 30.7 pg (25-34); Mean Corpuscular Hgb Conc 33.9 g/dL (32-36); Mean Corpuscular Volume 90.5 fL (80-100); Mean Platelet Volume 9.1 fL (7.4-10.4); Monocytes # (auto) 0.75 K/uL (0.11-0.59); Monocytes % (auto) 8.6 %; Neutrophils % (auto) 62.1 %; Platelet Count 310 K/uL (130-400); RDW Coefficient of Variation 13.4 % (11.5-14.5); RDW Standard Deviation 44.1 fL (36.4-46.3); Red Blood Count 4.23 M/uL (4.2-5.4)
[2019-06-15] MEDS: NSS + 20MEQ KCL 20 MEQ/1,000 ML BAG IV SCH (06:34)
[2019-06-15 06:35] LABS: Prothrombin Time 9.8 Seconds (9.0-12.0)
[2019-06-15 06:50] LABS: Albumin Level 2.9 gm/dl (3.4-5.0); BUN Creatinine Ratio 13.6 (10-20); Calcium 8.5 mg/dl (8.5-10.1); Creatinine Clr Calc Pharmacy 83.9 ml/min; Est GFR (African American) 71.6; Est GFR (Non-African American) 61.8; Potassium 4.3 mmol/L (3.5-5.1)
[2019-06-15 06:59] LABS: Albumin Globulin Ratio 0.8 (0.9-2); Bilirubin,Total 0.5 mg/dl (0.2-1); Globulin 3.6 gm/dl (2.5-4.0); Total Protein 6.5 gm/dl (6.4-8.2)
[2019-06-15] MEDS: FAMOTIDINE 20 MG in SYRINGE 3 ML IV SCH (08:49)
--- NOTE | 2019-06-15 09:22 | Surgery Consultation ---
Date of Consultation June 15, 2019 Assessment & Plan (1) Cholelithiasis: pt is a 49 year-old female who was admitted to hospital for acute abdominal pain, MRCP. U/S, CT scan- cholelithiasis IMP: Cholelithiasis, Plan, I recommend to do out-patient, elective laparoscopic cholecystectomy, pt agrees with the plan, pt can be discharged today, F/U 1 week, History of Present Illness Attending Physician: Elgin Shah MD Chief Complaint: abdominal pain, HPI: The patient presents to the emergency department with complaint of acute onset of severe epigastric and right upper quadrant abdominal pain with nausea vomiting that began at work today, and worsened after she went home from work. Primary Care Provider: Leonora Rider MD The patient is a 49-year-old female who reports that she was at work today, when she started feel hot and clammy. She went home from work, and at home developed some abdominal cramping, had a bowel movement, and then felt nauseated and vomited. She had similar episode within the past week. She reports that after she vomits, she feels somewhat improved. She was on Tamiflu last week for influenza. She has not had any questionable food intakes. She denies any recent travels or sick exposures. I ( Maria Fernanda Pollock MD) reviewed pt's H/P , labs, MRCP, U/S study and CT scan, pt has no abdominal pain, no nausea, no vomiting, Allergies Allergy/AdvReac Type Severity Reaction Status Date / Time apple Allergy Unknown Verified 06/14/19 01:04 peach Allergy Unknown Verified 06/14/19 01:04 strawberry Allergy Unknown Verified 06/14/19 01:04 [id number] Allergy Unknown Unknown Uncoded 06/13/19 15:57 Home Medications Home Medications Medication Instructions Recorded Confirmed Type metformin 500 mg tablet 500 mg PO DAILY #90 tab 05/22/19 06/13/19 Rx multivitamin,[id number] 1 tab PO DAILY 06/04/19 06/13/19 History tablet Patient History Family History Mother Diabetes Father Multiple sclerosis Social History Preferred Language: Kiswahili Communication Ability: Effective Visual Impairment: No Limitations Hearing Ability: Normal Carousel Attendant Required: No Beliefs That Will Affect Care: None marital status: Life Partner Current Living Situation: Significant Other current occupational status: employed current occupation: DIRECTOR MANAGEMENT Feels Safe at Home: Yes Safety Concerns: Feels Safe At This Time Smoking Status: Light tobacco smoker Tobacco Type: cigars ; Age Started Using Tobacco: 47 ; Cigarettes Per Day: TWICE A WEEK ; Do You Dip or Chew Tobacco: No ; Tobacco Cessation Education Requested by Patient: No Hx Alcohol Use: Yes (Social) Alcohol type: beer and wine Alcohol Intake Frequency: Weekly Hx Substance Use: No Childhood Exposure to Second-Hand Smoke: Yes Dental Care, Regularly: Yes Physical Activity Frequency: Does not Exercise Seatbelt Use: always Sunscreen Use: Yes Review of Systems Review of Systems: All systems reviewed & are unremarkable except as noted in HPI & below Physical Exam Constitutional: WD/WN, vitals as above well developed and well nourished ENMT: external ear and nose normal, oropharynx normal Neck: trachea midline, no thyromegaly Respiratory: normal respiratory effort, lungs clear to auscultation normal respiratory effort Cardiovascular: RRR, no murmur, no edema Rate/Rhythm: regular rate and regular rhythm Heart Sounds: normal S1 and normal S2 Gastrointestinal (Abdomen): normal bowel sounds, soft, nontender, no hepatosplenomegaly Musculoskeletal: no cyanosis or clubbing, extremities motor strength 5/5 Skin: no rashes, warm and dry Neurologic: patellar DTR's 2+ bilat, sensation intact Psychiatric: Orientation: alert and oriented x 3 Results & Data Vital Signs (Past 12 Hours) Vital Signs Temp Pulse Pulse Resp BP BP Pulse Ox 06/15/19 08:00 36.7 C 64 16 125/80 97 06/14/19 23:18 36.8 C 70 18 123/83 96 Laboratory Results Abnormal lab results 06/14/19 06/15/19 06/15/19 Range/Units 08:36 05:32 05:32 [place] # (Auto) 0.75 H (0.11-0.59) K/uL Chloride 113 H 113 H (98-107) mmol/L Total Bilirubin 1.1 H D (0.2-1) mg/dl AST 223 H 98 H (15-37) U/L ALT 316 H 228 H (12-78) U/L Albumin 3.0 L 2.9 L (3.4-5.0) gm/dl Albumin/Globulin Ratio 0.8 L 0.8 L (0.9-2) Diagnostic Findings Study: MRCP. HISTORY:, Dilated common bile duct FINDINGS: Unremarkable liver spleen. Pancreas is unremarkable. Probable small gallstone at the gallbladder fundus. Bladder ductal system is unremarkable. No evidence for choledocholithiasis. IMPRESSION: 1. Small gallstone at the gallbladder fundus. 2. Unremarkable biliary ductal system. 3. No evidence for choledocholithiasis. ULTRASOUND RIGHT UPPER QUADRANT ABDOMEN CLINICAL HISTORY: Cholelithiasis and choledocholithiasis seen by CT.. COMPARISON STUDY: Abdominal CT dated 06/13/2019. TECHNIQUE: Real-time, grayscale, and color flow sonography of the right upper quadrant of the abdomen was performed. Images are reviewed in the transverse and longitudinal planes. FINDINGS: Liver: The liver is enlarged, measuring over 19 cm in length. Liver is heterogeneous and echotexture. There is no intrahepatic biliary ductal di latation. The main portal vein is patent. Gallbladder: Shadowing gallstones are noted. Focal adenomyomatosis is noted in the fundal region. There is no gallbladder wall thickening or pericholecystic fluid. A sonographic Oates's sign is reportedly absent. The common bile duct measures up to 0.7 cm in diameter. Pancreas: Visualized portions of the pancreatic head and body are normal in appearance. The splenic vein is patent. Right kidney: Survey images of the right kidney demonstrate normal size and echotexture. There is no hydronephrosis. Ascites: None. IMPRESSION: 1. Cholelithiasis without sonographic evidence of acute cholecystitis. 2. The common bile duct measures up to 7 mm. The common duct stone questioned by CT is not visualized by ultrasound. 3. Mild hepatomegaly. CT SCAN OF THE ABDOMEN AND PELVIS WITH IV CONTRAST CLINICAL HISTORY: Nausea and vomiting. Leukocytosis. COMPARISON STUDY: KUB dated 02/24/2016. TECHNIQUE: Following the IV administration of 93 cc of Optiray 320, CT scan of the abdomen and pelvis is performed from the lung bases to the proximal femora. Images are reviewed in the axial, sagittal, and coronal planes. IV contrast was administered without complication. Oral contrast was utilized. A dose lowering technique was utilized adhering to the principles of ALARA. CT DOSE: 1035.98 mGycm FINDINGS: Lung bases: The heart is normal in size and without pericardial effusion. A fat- containing Bochdalek hernia is noted at the left lung base. The lung bases are clear noting bibasilar scarring/atelectasis. There is a tiny hiatal hernia. Liver: The contrast-enhanced liver is enlarged, measuring 19 cm in length. The liver is otherwise normal in contour and attenuation. There is no intrahepatic biliary ductal dilatation. The hepatic veins and portal veins are patent. Gallbladder: There are small calcified gallstones, with no clear CT evidence of acute cholecystitis. Question a stone in the common bile duct at the head of the pancreas on axial image #180. Spleen: Normal in size and attenuation. Pancreas: Unremarkable. Adrenal glands: Unremarkable. Kidneys: The contrast enhanced kidneys are normal in size and without hydronephrosis. Renal enhancement appears heterogeneous bilaterally. There is a retroaortic left renal vein. Abdominal vasculature: The abdominal aorta is normal in course and caliber. Bowel: There is no bowel obstruction. Enteric contrast reaches the distal colon. The appendix is grossly unremarkable but incompletely visualized. Peritoneum: There is no intraperitoneal free air or abdominal ascites. Lymphadenopathy: None. Pelvic viscera: Although decompressed, the bladder wall appears thickened and hyperemic and there is pericystic inflammation. Uterine fibroids are suspected. An intrauterine device is in place. There are bilateral ovarian follicles. Skeletal structures: There is mild lumbosacral spondylosis. Mild degenerative sclerosis is noted in the sacroiliac joints. No lytic or blastic lesions are seen. IMPRESSION: 1. Findings suggest cystitis. Additionally, renal enhancement appears heterogeneous bilaterally. This could be seen in setting of pyelonephritis. Correlation with clinical findings and urinalysis will be required. 2. Cholelithiasis without clear CT evidence of acute cholecystitis. 3. A calcified gallstone is suspected within the distal common bile duct at the head of the pancreas. If there is clinical concern for acute cholecystitis an ultrasound of the right upper quadrant should be considered. 4. Hepatomegaly. 5. Additional findings as above.
--- NOTE | 2019-06-15 09:41 | Discharge Summary ---
Date of Service June 15, 2019 Admission HPI Per Admitting Provider The patient is a 49-year-old female who reports that she was at work today, when she started feel hot and clammy. She went home from work, and at home developed some abdominal cramping, had a bowel movement, and then felt nauseated and vomited. She had similar episode within the past week. She reports that after she vomits, she feels somewhat improved. She was on Tamiflu last week for influenza. She has not had any questionable food intakes. She denies any recent travels or sick exposures. Principal Diagnosis Cholelithiasis Discharge Exam Constitutional WD/WN, vitals as above Respiratory normal respiratory effort, lungs clear to auscultation Cardiovascular RRR, no murmur, no edema Gastrointestinal (Abdomen) Inspection/Auscultation: abdomen normal to inspection and normal bowel sounds; abdomen not distended Percussion/Palpation: abdomen soft; abdomen nontender Musculoskeletal no cyanosis or clubbing, extremities motor strength 5/5 Skin no rashes, warm and dry Neurologic moves all extremities and awake Psychiatric A+Ox3, euthymic affect Discharge Data Allergies Allergy/AdvReac Type Severity Reaction Status Date / Time apple Allergy Unknown Verified 06/14/19 01:04 peach Allergy Unknown Verified 06/14/19 01:04 strawberry Allergy Unknown Verified 06/14/19 01:04 [id number] Allergy Unknown Unknown Uncoded 06/13/19 15:57 Consultations 06/13/19 20:54 ED Decision to Admit Stat 06/14/19 00:28 Consult Case Management - Discharge Planning Routine 06/14/19 09:51 Consult Gastroenterology Routine 06/14/19 15:34 Consult General Surgery Routine 06/15/19 09:28 Consult [facility] [place] connection worker Routine Procedures Performed Operation Date: 06/15/19 09:00 <No data on this case meets the specified criteria> Ordered Studies 06/13/19 16:20 CT abd pelvis oral and IV con Stat 06/13/19 21:00 US abdomen limited Stat 06/14/19 11:40 MR MRCP Routine Hospital Course (1) Nausea and vomiting: Nausea vomiting/epigastric and right upper quadrant abdominal pain/hepatomegaly/common bile duct dilatation- Cholelithiasis on US. Bile duct measured up to 7 mm in size. MRCP showed a small gallstone at the gallbladder fundus and an unremarkable biliary ductal system, no evidence for choledocholithiasis Given Zosyn 4.5g IV q8h begun in the ED but will dc for home - no evidence on CT or gallbladder US of cholecystitis so will dc antibiotics at discharge GI consulted - likely transient blockage of CBD - consulted surgery (2) Cholelithiasis: Surgery consulted - recommends elective outpatient surgery (3) Elevated WBC count: WBCs 20 on admission, now wnl No cholecystitis on CT or US On CT additionally: Findings suggest cystitis. Additionally, renal enhancement appears heterogeneous bilaterally. This could be seen in setting of pyelonephritis - - patient never had any urinary symptoms or flank pain - urine culture pending however it was collected after antibiotics started so unsure if it will result with any growth - will counselor/art therapist on warning signs for pyelonephritis and discontinue abx. She should follow with per pcp this week (4) Epigastric abdominal pain: See above (5) Hepatomegaly: AST and ALT increased to 223 adn 316, bili 1.1 - now trending down No report of fatty liver on imaging but liver is enlarged Per GI - liver likely enlarged due to metabolic syndrome. LFTs due to transient duct blockage from stone (6) Hyperglycemia: Hold metformin. BSGs stable (7) DVT prophylaxis: SCDs Total Time Total Time Spent Total Time Spent (In Minutes): greater than 30 minutes Discharge Plan Discharge Items Patient Disposition: Home - Self-Care Reason For Visit: CBD STONE,NAUSEA AND VOMITING Discharge Diagnosis: Cholelithiasis Condition on Discharge: Good Activity: Resume your previous activity Non-emergency contact: Primary Care Provider Call non-emergency contact if: you have any medication questions, your symptoms worsen, your pain is not controlled, your pain is worsening and you have a fever Follow-up/Referrals: Leonora Rider MD [Primary Care Provider] - Diet: Carb Consistent or DM2 Addtl Attending Provider Instructions: You likely have had a transient gallstone block your common bile duct resulting in pain and elevation of your liver function test in your blood work. This appears to have resolved as your liver function is improving and your symptoms have cleared. General surgery recommends that you have an elective removal of your gallbladder (cholecystectomy). * Please make an appointment to see your primary care provider this coming week. * Our nurse navigator will contact you with an appointment to see general surgery * You should hold your metformin for today and resume tomorrow as it may interact with the dye that you received from you CT. * Your CT showed possible kidney infection. However, you have not ever had any urinary symptoms. I will hold off on discharging you with antibiotics. If you develop symptoms of fever, aches, chills, flank pain, burning with urination or difficulty urinating please call your doctor right way as this may signal a need to start antibiotic therapy. Pending Studies at Discharge: Yes Studies:: Urine Culture Stand-Alone Forms: Call Back Authorization, My [facility] Medications and DC Order Prescriptions: Continued metformin 500 mg tablet 500 mg PO DAILY Qty: 90 RF: 1 Complete Multivitamin tablet 1 tab PO DAILY RF: 0 Discharge Orders: Discharge Order (Routine); Ordered 06/15/19 Ordered By: Simran Diaz Admission Data Admit Date/Time: 06/14/19 11:41 Attending Provider: Elgin Shah Admit Provider: Bonifacio Quintero Primary Care Provider: Leonora Rider Other Providers: Elgin Shah ; Isaac Ventura ; Jimmy Bermeo
== END 2019-06-15 11:55 | disposition home or self-care (01) | DRG 446 ==
LOC: 3W 15:02 → ED 15:02 → SUATTDRO 22:06 → 3W 23:31

== ENCOUNTER 2019-06-17 00:34 | Inpatient (IN) ==
[2019-06-17] MEDS ORDERED: HYDROmorphone INJ 1 MG/ML SYRINGE IV STA (00:57)
[2019-06-17] MEDS ORDERED: ONDANSETRON INJ 2 MG/ML 2 ML VIAL IV STA (00:57)
[2019-06-17] MEDS ORDERED: SODIUM CHLORIDE 0.9% 1000ML 1,000 ML IV ONE (00:57)
[2019-06-17 01:16] LABS: Basophils # (auto) 0.04 K/uL (0-0.2); Basophils % (auto) 0.4 %; Eosinophils # (auto) 0.08 K/uL (0-0.5); Eosinophils % (auto) 0.7 %; Hematocrit (blood only) 40.3 % (37-47); Hemoglobin 14.6 g/dL (12.0-16.0); Immature Granulocytes # (auto) 0.02 K/uL (0.00-0.02); Immature Granulocytes % (auto) 0.2 %; Lymphocytes # (auto) 1.85 K/uL (1.2-3.4); Lymphocytes % (auto) 17.1 %; Mean Corpuscular Hemoglobin 31.8 pg (25-34); Mean Corpuscular Hgb Conc 36.2 g/dL (32-36); Mean Corpuscular Volume 87.8 fL (80-100); Mean Platelet Volume 8.7 fL (7.4-10.4); Monocytes # (auto) 1.01 K/uL (0.11-0.59); Monocytes % (auto) 9.4 %; Neutrophils # (auto) 7.79 K/uL (1.4-6.5); Neutrophils % (auto) 72.2 %; Platelet Count 344 K/uL (130-400); RDW Coefficient of Variation 12.9 % (11.5-14.5); RDW Standard Deviation 41.4 fL (36.4-46.3); Red Blood Count 4.59 M/uL (4.2-5.4); White Blood Count 10.79 K/uL (4.8-10.8)
[2019-06-17 01:20] LABS: Appearance Urine Clear (Clear); Bacteria Urine Automated Negative (Negative); Bilirubin Urine Negative (Negative); Blood Urine Trace (Negative); Cast Urine Automated 0 /lpf (0-5); Color Urine Yellow; Glucose Urine UA Negative (Negative); Ketones Urine Negative (Negative); Leukocyte Esterase Urine Negative (Negative); Nitrite Urine Negative (Negative); Protein Urine Negative (Negative); RBC Urine Automated 0-4 /hpf (0-4); Specific Gravity Urine 1.014 (1.000-1.030); Urobilinogen Urine Negative (Negative)
[2019-06-17 01:39] LABS: Albumin Level 3.4 gm/dl (3.4-5.0); BUN Creatinine Ratio 12.7 (10-20); Bilirubin Direct 0.8 mg/dl (0-0.2); Calcium 9.5 mg/dl (8.5-10.1); Est GFR (Non-African American) 64.7; Potassium 3.9 mmol/L (3.5-5.1)
[2019-06-17 01:47] LABS: Bilirubin,Total 1.3 mg/dl (0.2-1); Total Protein 7.4 gm/dl (6.4-8.2)
--- NOTE | 2019-06-17 04:11 | History & Physical Report ---
Date of Service June 17, 2019 Assessment & Plan (1) Elevated liver enzymes: Patient with elevated liver enzymes, mixed hepatocellular and obstructive pattern, BAF=112, UGK=103, Tbili=1.3, Dbili=0,8 and NP=378. She is afebrile, HD stable, non-toxic in appearance. Mild discomfort with RUQ palpation, Imaging with dilated CBD to 9mm with no obvious stone. Patient with recent MRCP, GI evaluation and was referred to General Surgery for elective cholecystectomy. For pre-operative assessment - patient with no history of CAD, arrhythmia or CHF. No pulmonary disease. She is active and independent, able to complete 4 mets of activity without difficulty. Per RCRI criteria, patient is Class II risk for perioperative cardiac event. She may proceed to surgery with no additional workup. -Observation to medical floor -Pain control with Morphine PRN -Nausea control with Zofran PRN -Zosyn 3.375 gm IV q 8 hours -General Surgery consultation appreciated Present on Admission?: Yes (2) Dysfunctional gallbladder: As above. -Repeat LFTs, CBC, BMP in AM -HIDA Scan -Surgery consultation Present on Admission?: Yes (3) Pre-diabetes: Fingersticks. Continue to monitor -Hod Metformin F/E/N - NSS, monitor electrolytes, NPO Ppx - Low risk for DVT Code - Full Dispo - Obs to medical floor History of Present Illness Chief Complaint: RUQ pain Primary Care Provider: Leonora Rider MD Brigida Martinez is a pleasant 49yo C female with history of cholelithiasis presenting with RUQ and epigastric pain. She was recently admitted from 06/13 - 06/15 with similar complaints. At that time she was found to have dilatation of the CBD to 7mm and cholelithiasis on US imaging. MRCP was performed which showed a small gallstone at the gallbladder fundus and an unremarkable biliary ductal system - no choledocholithiasis. She was treated with Zosyn. GI was consulted and suspected transient blockage of the CBD. Patient was discharged home with referral to General Surgery - she has an appointment with Dr. Bermeo for 06/19/19. She reports "feeling off" all day today - RUQ pain and nausea. She ate a lite dinner around 18:00 then developed RUQ and epigastric discomfort around 19:30. Her symptoms progressed and she came to the ER around 22:00. She denies fevers/chills/vomiting/diarrhea/constipation/jaundice/icterus/change in stool or urine color. No additional complaints at this time. She is presently feeling well after receiving Dilaudid in the ER. ER Course: Dilaudid, Zofran, NSS Allergies Allergy/AdvReac Type Severity Reaction Status Date / Time apple Allergy Unknown Verified 06/14/19 01:04 peach Allergy Unknown Verified 06/14/19 01:04 strawberry Allergy Unknown Verified 06/14/19 01:04 [id number] Allergy Unknown Unknown Uncoded 06/13/19 15:57 Home Medications Home Medications Medication Instructions Recorded Confirmed Type metformin 500 mg tablet 500 mg PO DAILY #90 tab 05/22/19 06/17/19 Rx multivitamin,[id number] 1 tab PO DAILY 06/04/19 06/17/19 History tablet Past Med/Surg History Medical History Cholelithiasis Hyperglycemia Hepatomegaly Pyelonephritis (Acute) History of wisdom tooth extraction Social History Preferred Language: Korean Communication Ability: Effective Visual Impairment: No Limitations Hearing Ability: Normal Soakers Supervisor Required: No Beliefs That Will Affect Care: None marital status: Life Partner Current Living Situation: Significant Other current occupational status: employed current occupation: DIRECTOR MANAGEMENT Feels Safe at Home: Yes Smoking Status: Current some day smoker Tobacco Type: cigars ; Age Started Using Tobacco: 47 ; Cigarettes Per Day: TWICE A WEEK ; Hx Alcohol Use: Yes (Social) Alcohol type: beer and wine Alcohol Intake Frequency: Weekly Hx Substance Use: No Childhood Exposure to Second-Hand Smoke: Yes Dental Care, Regularly: Yes Physical Activity Frequency: Does not Exercise Seatbelt Use: always Sunscreen Use: Yes Review of Systems Review of Systems: All systems reviewed & are unremarkable except as noted in HPI & below Physical Exam Physical Exam: General: patient resting comfortably, NAD, non-toxic in appearance, AA&O x 4 Skin: warm, dry, intact, no rashes or lesions HEENT: NC/AT, PERRL, EOMI, anicteric sclera, conjunctiva without injection, external ear normal to inspection and nontender, nares patent, moist mucus membranes, dentition intact, no oropharyngeal lesions, neck supple, trachea midline, no LAD, no thyromegaly, no JVD Heart: +S1/S2, regular, no m/r/g Lungs: equal air entry bilaterally, no rales/rhonchi/wheezes Abd: +BS, soft, ND, RUQ pain with deep palpation, some voluntary guarding, no masses/organomegaly/ascites Ext: warm, 2+ pulses in UE/LE bilaterally, no clubbing/cyanosis or edema Neuro: nonfocal, patient AA&O x 4, speech intact, no facial droop, moving all extremities on command with equal strength 5/5 Results & Data Vital Signs (Past 12 Hours) Vital Signs Temp Pulse Pulse Resp BP BP Pulse Ox 06/17/19 01:59 64 20 122/74 96 06/17/19 00:39 37.0 C 69 20 163/101 H 98 Laboratory Results Lab Results 06/17/19 06/17/19 06/17/19 Range/Units 01:08 01:08 01:08 WBC 10.79 (4.8-10.8) K/uL RBC 4.59 (4.2-5.4) M/uL Hgb 14.6 (12.0-16.0) g/dL Hct 40.3 (37-47) % MCV 87.8 (80-100) fL MCH 31.8 (25-34) pg MCHC 36.2 H (32-36) g/dL RDW Std Deviation 41.4 (36.4-46.3) fL RDW Coeff of Gem 12.9 (11.5-14.5) % Plt Count 344 (130-400) K/uL MPV 8.7 (7.4-10.4) fL Immature Gran % (Auto) 0.2 % Neut % (Auto) 72.2 % Lymph % (Auto) 17.1 % [place] % (Auto) 9.4 % Eos % (Auto) 0.7 % Baso % (Auto) 0.4 % Immature Gran # (Auto) 0.02 (0.00-0.02) K/uL Neut # (Auto) 7.79 H (1.4-6.5) K/uL Lymph # (Auto) 1.85 (1.2-3.4) K/uL [place] # (Auto) 1.01 H (0.11-0.59) K/uL Eos # (Auto) 0.08 (0-0.5) K/uL Baso # (Auto) 0.04 (0-0.2) K/uL Sodium 140 (136-145) mmol/L Potassium 3.9 (3.5-5.1) mmol/L Chloride 109 H (98-107) mmol/L Carbon Dioxide 26 (21-32) mmol/L Anion Gap 5.0 (3-11) BUN 13 (7-18) mg/dl Creatinine 1.03 (0.6-1.2) mg/dl Est Cr Clr Drug Dosing 81.0 ml/min Est GFR ( Amer) 75.0 Est GFR (Non-Af Amer) 64.7 BUN/Creatinine Ratio 12.7 (10-20) Glucose 119 H (70-99) mg/dl Calcium 9.5 (8.5-10.1) mg/dl Total Bilirubin 1.3 H D (0.2-1) mg/dl Direct Bilirubin 0.8 H (0-0.2) mg/dl AST 487 H (15-37) U/L ALT 548 H (12-78) U/L Alkaline Phosphatase 144 H (45-117) U/L Total Protein 7.4 (6.4-8.2) gm/dl Albumin 3.4 (3.4-5.0) gm/dl Lipase 165 (73-393) U/L Urine Color Yellow Urine Appearance Clear (Clear) Urine pH 5.0 (4.5-7.5) Ur Specific [place] 1.014 (1.000-1.030) Urine Protein Negative (Negative) Urine Glucose (UA) Negative (Negative) Urine Ketones Negative (Negative) Urine Blood Trace H (Negative) Urine Nitrite Negative (Negative) Urine Bilirubin Negative (Negative) Urine Urobilinogen Negative (Negative) Ur Leukocyte Esterase Negative (Negative) Urine WBC (Auto) 1-5 (0-5) /hpf Urine RBC (Auto) 0-4 (0-4) /hpf U Hyaline Cast (Auto) 0 (0-5) /lpf U Epithel Cells (Auto) 5-10 H (0-5) /lpf Urine Bacteria (Auto) Negative (Negative) Diagnostic Findings RUQ US - Per STAT-rad - No gallbladder wall thickening or pericholecystic fluid. The gallbladder is distended with sludge. Gallstones are not clearly seen. Incidental adenomyomatosis. The CBD is dilated, mildly increased from previous ultrasound, now measuring 9mm. The cause is not seen with ultrasound. Recommend correlation with LFTs and consider MRCP or ERCP i clinically indicated. The liver is enlarged. No pelvic mass, . No hydronephrosis or nephrolithiasis. Code Status & VTE Plan Code Status Full VTE Prophylaxis Plan VTE Prophylaxis will be ordered: No Reason for no VTE drug order: Treatment not indicated Reason for no VTE mechanical prophylaxis: Treatment not indicated PG Care Time/CCT Total # of Minutes Spent Total Time Spent with Patient: Total time spent is greater than 50% in coordination of care (as documented) at patient's floor/unit and/or counseling patient:
[2019-06-17] MEDS ORDERED: CARBOHYDRATES FOR HYPOGLYCEMIA PO PRN (05:07)
[2019-06-17] MEDS ORDERED: MoRPHine SULFATE 2 MG/ML CARP IV PRN (05:07)
[2019-06-17] MEDS ORDERED: GLUCAGON FOR INJ 1 MG VIAL SQ PRN (05:07)
[2019-06-17] MEDS ORDERED: PIPERACILL/TAZOBAC CONSULT ACTIVE PRN (05:07)
[2019-06-17] MEDS ORDERED: DEXTROSE 50% 50 ML SYRINGE IV PRN (05:07)
[2019-06-17] MEDS ORDERED: GLUCOSE 40% GEL 15 GM TUBE PO PRN (05:07)
[2019-06-17] MEDS ORDERED: ONDANSETRON INJ 2 MG/ML 2 ML VIAL IV PRN (05:07)
[2019-06-17] MEDS ORDERED: GLUCOSE 10 TABS/TUBE PO PRN (05:07)
[2019-06-17] MEDS ORDERED: ACETAMINOPHEN 325 MG TAB PO PRN (05:07)
[2019-06-17] MEDS ORDERED: PIPERACILLIN/TAZOBACTAM 4.5 GM in DEXTROSE 5% 100 ML IV ONE (05:30)
[2019-06-17] MEDS: SODIUM CHLORIDE 0.9% 1000ML 1,000 ML IV SCH ×2 (05:44→14:33)
--- NOTE | 2019-06-17 06:49 | Emergency Department Note ---
Entered by Eben Aguilar acting as a scribe for ED Provider Note Name: Brigida Martinez Age: 49, female Arrives Via: Walk in Informant: Patient CC: Abdominal pain HPI: The patient is a 49 year old female who presents to the emergency department with complaints of constant abdominal pain beginning at 1930 yesterday. The patient states that she was recently seen in the emergency department for similar symptoms. She notes that she was admitted to the emergency department overnight but was discharged 2 days ago. She reports that she felt fine at discharge, but she states that she started having abdominal pain again at 1930 yesterday. She also complains of two loose bowel movements. She denies any back pain, vomiting, urinary symptoms, diarrhea, CP, SOB, LOC, and leg swelling. She also denies any trauma and chemical exposure. She notes that she has a family history of pancreatitis and diverticulitis. She reports that she occasionally drinks alcohol, but she states that she does not use drugs. She notes that she takes metformin. ROS: See above HPI for pertinent positives & negatives. A total of 10 systems reviewed and were otherwise negative. Past Medical History: Pyelonephritis, hyperglycemia, cholelithiasis Past Surgical History: none Family History: Cancer, diabetes, MS, [place] Social History: Lives with significant other, employed, occasionally drinks alcohol, does not use drugs Home Medications: Metformin Allergies: None Physical: Vitals: BP 122/74, Pulse 64, Resp 20, Temp 98.6, O2 Sat 96 Exam: GENERAL: Patient is uncomfortable and dehydrated appearing, in moderate distress. EYES: No scleral icterus, unremarkable pupils. ENT: Mucous membranes moist, no nasal congestion. NECK: No masses appreciated, no meningismus, trachea is midline. RESPIRATORY: No dyspnea. Clear to auscultation and equal bilaterally. No whe william, no rhonchi. CARDIOVASCULAR: Regular rate and rhythm. No murmurs, rubs, gallops appreciated. GASTROINTESTINAL: Abdomen soft, no peritonitis. Bowel sounds positive. No masses appreciated. Epigastric tenderness to palpation. BACK: No midline tenderness, no CVA tenderness EXTREMITIES: Normal motion all extremities, no cyanosis, no edema. NEUROLOGIC: Alert and oriented, no acute motor or sensory deficits, no focal weakness, cranial nerves grossly intact. SKIN: No rash, no jaundice, no diaphoresis. ED Course: Prior Medical Record, Triage/Nursing Notes, Medications, Allergies reviewed by Me 0050: The patient was evaluated in room C8. A complete history and physical exam was performed. 0150: I rechecked the patient. She is at CT. 0244: I reevaluated and updated the patient. She is feeling better but is still having some abdominal cramping. 0322: Upon reevaluation, the patient is stable. She is still having some mild abdominal discomfort but she is not in any significant pain. I discussed the findings and the treatment plan with the patient. She expresses agreement and understanding. I [place]. Fra[place] [facility] [place] The patient will be evaluated for further management. Vital Signs: reviewed and remarkable for wnl Labs: Reviewed and remarkable for elevated LFTs Interventions: saline lock, dilaudid 1 mg IV, nss bolus 1 L IV Imaging: Radiology results as stated below per my review and the radiologist's interpretation: US RUQ: No gallbladder wall thickening or pericholecystic fluid. The gallbladder is distended with sludge. Gallstones are not clearly seen. Incidental adenomyomatosis. The common bile duct is dilated, mildly increased from previous ultrasound now measuring 9mm. The cause is not seen with ultrasound. Recommend correlation with liver function tests and consider MRCP or ERCP if clinically indicated. The liver is enlarged. No pelvic mass. No hydronephrosis or nephrolithiasis. Radiologist: Ciro Arndt MD. Consults: 0322: I reviewed the patient's case with Dr. Fraire - [place] [facility] [place] She will evaluate the patient for further management. Blood pressure: Elevated - Will be Monitored by Hospitalist Disposition: Hospitalization. Prescriptions: None. Differentials: Differential: Cholecystitis, Gallbladder disfunction, Hepatic Dysfunction, Gastritis/PUD, Pancreatitis, ACS, Aortic Pathology, amongst other pathologies entertained. Medical Decision Making: Pleasant 49 yr old female without significant PMH other than DMII arrives for evaluation of persistent RUQ/Epigastric pain. Was recently admitted for concerning cholecystitis/cbd obstruction in setting of elevated WBC. After painmeds/fluids she had resolution of symptoms and MRCP without evidence obstuction though there is possible distal stone. She arrives again after pain had been gone 24 hours before returning. She had non-surgical abdomen by exam but with symptoms labs US ordered. Labs reveal increasing LFTs without significant obstructive pattern. GB continues to be distended with sludge though no clear GB wall thickening. With LFT elevation and previous findings will bring in to hospitalist with presumed GB dysfunction. No symptoms of ACS, Dissection, PE. Impression: Elevated liver enzymes, distended gallbladder. Lenny Haas MD The scribe's documentation has been prepared under my direction and personally reviewed by me in its entirety. I confirm that the note above accurately reflects all work, treatment, procedures, and medical decision making performed by me. Impression & Plan Elevated liver enzymes, Dysfunctional gallbladder Past Med/Surg History Medical History Cholelithiasis Hyperglycemia Hepatomegaly Pyelonephritis (Acute) History of wisdom tooth extraction Social History Preferred Language: Maori Communication Ability: Effective Visual Impairment: No Limitations Hearing Ability: Normal Operating Room Manager Required: No Beliefs That Will Affect Care: None marital status: Life Partner Current Living Situation: Significant Other current occupational status: employed current occupation: DIRECTOR MANAGEMENT Other Information That Helps Us Care for You: No Feels Safe at Home: Yes Safety Concerns: Feels Safe At This Time Smoking Status: Current some day smoker Tobacco Type: cigars ; Age Started Using Tobacco: 47 ; Cigarettes Per Day: occasional cigars ; Do You Dip or Chew Tobacco: No ; Second Hand Exposure: Yes (only when at cigar lounge) ; Tobacco Cessation Education Requested by Patient: No Hx Alcohol Use: Yes Alcohol type: beer and wine Alcohol Intake Frequency: Weekly Hx Substance Use: No Childhood Exposure to Second-Hand Smoke: Yes Dental Care, Regularly: Yes Physical Activity Frequency: Does not Exercise Seatbelt Use: always Sunscreen Use: Yes Results & Data Vital Signs Vital Signs - 24 hr 06/17/19 00:39 06/17/19 01:59 06/17/19 03:30 Temperature 37.0 C Temperature Source Oral Sepsis Recent Fever Within 48 Hours No Sepsis New/Unexplained Change in Mental Status No Sepsis Action Taken by Nursing No Action Required Pulse Rate 69 Pulse Rate [Apical] 64 56 L Respiratory Rate 20 20 20 Respiratory Effort / Characteristics Non-Labored Spontaneous Non-Labored Spontaneous Respiratory Depth Normal Normal Respiratory Pattern Regular Regular Blood Pressure 163/101 H Blood Pressure [Right Arm] 122/74 140/87 Blood Pressure Mean 121 Blood Pressure Mean [Right Arm] 90 104 Blood Pressure Position [Right Arm] Lying Lying Pulse Oximetry 98 96 96 Oxygen Delivery Method Room Air Room Air Home Medications Current Medication List: was personally reviewed by me Laboratory Data Attestation: I reviewed the patient's lab results. Result diagrams: 06/17/19 01:08 06/17/19 01:08 Lab Results 06/17/19 06/17/19 06/17/19 Range/Units 01:08 01:08 01:08 WBC 10.79 (4.8-10.8) K/uL RBC 4.59 (4.2-5.4) M/uL Hgb 14.6 (12.0-16.0) g/dL Hct 40.3 (37-47) % MCV 87.8 (80-100) fL MCH 31.8 (25-34) pg MCHC 36.2 H (32-36) g/dL RDW Std Deviation 41.4 (36.4-46.3) fL RDW Coeff of Gem 12.9 (11.5-14.5) % Plt Count 344 (130-400) K/uL MPV 8.7 (7.4-10.4) fL Immature Gran % (Auto) 0.2 % Neut % (Auto) 72.2 % Lymph % (Auto) 17.1 % [place] % (Auto) 9.4 % Eos % (Auto) 0.7 % Baso % (Auto) 0.4 % Immature Gran # (Auto) 0.02 (0.00-0.02) K/uL Neut # (Auto) 7.79 H (1.4-6.5) K/uL Lymph # (Auto) 1.85 (1.2-3.4) K/uL [place] # (Auto) 1.01 H (0.11-0.59) K/uL Eos # (Auto) 0.08 (0-0.5) K/uL Baso # (Auto) 0.04 (0-0.2) K/uL Sodium 140 (136-145) mmol/L Potassium 3.9 (3.5-5.1) mmol/L Chloride 109 H (98-107) mmol/L Carbon Dioxide 26 (21-32) mmol/L Anion Gap 5.0 (3-11) BUN 13 (7-18) mg/dl Creatinine 1.03 (0.6-1.2) mg/dl Est Cr Clr Drug Dosing 81.0 ml/min Est GFR ( Amer) 75.0 Est GFR (Non-Af Amer) 64.7 BUN/Creatinine Ratio 12.7 (10-20) Glucose 119 H (70-99) mg/dl Calcium 9.5 (8.5-10.1) mg/dl Total Bilirubin 1.3 H D (0.2-1) mg/dl Direct Bilirubin 0.8 H (0-0.2) mg/dl AST 487 H (15-37) U/L ALT 548 H (12-78) U/L Alkaline Phosphatase 144 H (45-117) U/L Total Protein 7.4 (6.4-8.2) gm/dl Albumin 3.4 (3.4-5.0) gm/dl Lipase 165 (73-393) U/L Urine Color Yellow Urine Appearance Clear (Clear) Urine pH 5.0 (4.5-7.5) Ur Specific [place] 1.014 (1.000-1.030) Urine Protein Negative (Negative) Urine Glucose (UA) Negative (Negative) Urine Ketones Negative (Negative) Urine Blood Trace H (Negative) Urine Nitrite Negative (Negative) Urine Bilirubin Negative (Negative) Urine Urobilinogen Negative (Negative) Ur Leukocyte Esterase Negative (Negative) Urine WBC (Auto) 1-5 (0-5) /hpf Urine RBC (Auto) 0-4 (0-4) /hpf U Hyaline Cast (Auto) 0 (0-5) /lpf U Epithel Cells (Auto) 5-10 H (0-5) /lpf Urine Bacteria (Auto) Negative (Negative) Administered Medications Sodium Chloride (Nss 1000ml) 1,000 mls @ 125 mls/hr IV .Q8H HAL Stop: 06/17/19 21:06 Last Admin: 06/17/19 05:44 Dose: 125 mls/hr Documented by: [id number] Discontinued Medications Hydromorphone HCl (Dilaudid) 1 mg IV NOW STA Stop: 06/17/19 00:58 Last Admin: 06/17/19 01:17 Dose: 1 mg Documented by: [id number] Sodium Chloride (Nss 1000ml) 1,000 mls @ 999 mls/hr IV .Q1H1M ONE Stop: 06/17/19 01:57 Last Infusion: 06/17/19 02:19 Dose: 0 mls/hr Documented by: [id number] Admin: 06/17/19 01:17 Dose: 999 mls/hr Documented by: [id number] Piperacillin Sod/Tazobactam (Sod 4.5 gm/ Dextrose) 120 mls @ 200 mls/hr IV NOW ONE; Protocol Stop: 06/17/19 06:05 Last Infusion: 06/17/19 06:24 Dose: 0 mls/hr Documented by: [id number] Admin: 06/17/19 05:44 Dose: 200 mls/hr Documented by: [id number] Ondansetron HCl (Zofran) 4 mg IV NOW STA Stop: 06/17/19 00:58 Last Admin: 06/17/19 01:17 Dose: 4 mg Documented by: [id number] Discharge Plan Visit Data *Final* Discharge Date/Time: 06/17/19 04:44 Chief Complaint: Abdominal Pain Stated Complaint: SEVERE ABDOMINAL PAIN,NAUSEA,FEVER,GALLBLADDER ED Provider: Lenny Haas Discharge Problem: Elevated liver enzymes, Dysfunctional gallbladder Patient Disposition: Admitted As Inpatient Discharge Instructions Interventions: ED Discharge Assessment Last Done: 06/17/19 04:44 The scribe's documentation has been prepared under my direction and personally reviewed by me in its entirety. I confirm that the note above accurately reflects all work, treatment, procedures, and medical decision making performed by me.
--- NOTE | 2019-06-17 07:12 | Ultrasound Report ---
US gallbladder CLINICAL HISTORY: 49 years-old Female presenting with known gallstone, acute epigastric pain. TECHNIQUE: Real-time grayscale and limited color Doppler ultrasound imaging of the abdomen limited to the right upper quadrant was performed. COMPARISON: MRCP from 06/14/[address] of the abdomen and pelvis from 06/13/2019. FINDINGS: Pancreas: Visualized portions of the pancreatic head and body normal. Liver: Normal echogenicity and echotexture. The liver measures 20.3 cm in maximal sagittal dimension. No sonographic evidence of hepatic mass. Main portal vein patent with normal directional flow. Biliary: No intrahepatic biliary ductal dilatation. Common bile duct measures up to 7-9 mm in diamete r. Gallbladder: Gallbladder sludge. No evidence of gallstones, gallbladder wall thickening, gallbladder distention, or pericholecystic fluid or inflammatory change. Adenomyomatosis may be present at the ga llbladder fundus versus a Phrygian cap. Right kidney: Normal in appearance without evidence of hydronephrosis. Ascites: None. Other: None. IMPRESSION: 1. No cholelithiasis or cholecystitis. Gallbladder sludge suspected. 2. Top normal prominence of extrahepatic bile ducts. 3. Moderate hepatomegaly. Electronically signed by: Manny Spring M.D. 06/17/2019 7:11 AM
[2019-06-17] MEDS: PIPERACILLIN/TAZOBACTAM 4.5 GM in DEXTROSE 5% 100 ML IV SCH ×2 (10:30→17:48)
--- NOTE | 2019-06-17 12:46 | Nuclear Medicine Report ---
NM hepatobiliary HISTORY: Pain. Nausea. ?cholecystitis COMPARISON: None. TECHNIQUE: Immediately following the intravenous administration of 5 mCi Tc-99m Choletec, dynamic ant erior abdominal imaging was performed. FINDINGS: Uniform hepatic tracer accumulation is shown somewhat delayed activity within the gallbladder with de layed activity at 8 minutes demonstrated post morphine administration. Small bowel activity is noted at 60 minutes. IMPRESSION: 1. Delayed passage of isotope to the gallbladder. 2. This appearance is consistent with that of chronic calculus cholecystitis. The above report was generated using voice recognition software. It may contain grammatical, syntax or spelling errors. Electronically signed by: Satya Connor M.D. 06/17/2019 12:44 PM
--- NOTE | 2019-06-17 15:36 | Surgery Consultation ---
Date of Consultation June 17, 2019 Assessment & Plan (1) Elevated liver enzymes: 49 year-old female who presented to ED originally on Sunday with abdominal pain, nausea, and vomiting found to have cholelithiasis and questionable choledocholithiasis with elevated LFT and t. bili. She had further workup with ultrasound and MRCP which showed no cholecystitis or choledocholithiasis just cholelithiasis. She presented again to ED after discharge on Sunday with recurrent pain, nausea, and vomiting. T. bili now 1.3. LFTS elevated. Lipase wnl. Ultrasound showing only sludge HIDA scan showing chronic cholecystitis, uptake in small bowel Plan: Discussed with patient her imaging results showing chronic cholecystitis however her LFTs are increased which can be concerning for choledocholithiasis. Will plan for laparoscopic cholecystectomy with intraoperative cholangiogram tomorrow. Discussed procedure and risks with patient. Will obtain consent tomorrow Will await GI consultation today for further recommendations. IF ERCP recommended could consider ERCP and cholecystectomy under same anesthetic. Will repeat cbc, cmp tomorrow am to follow LFTS. Continue NPO Continue IV fluids and pain management as needed Continue IV emetics Continue IV Zosyn (2) Cholelithiasis: Plan as above Dr. Chapman has seen and examined pt, please see addendum for further recommendations/plan Supervising Physician Co-Signing Physician Notes I interviewed and examined this patient I agree with the above note. She has a history of cholelithiasis with pain. She had transient elevated transaminitis. We will continue to follow her LFTs. If they trend down we will plan for cholecystectomy if not will need GI intervention most likely. I reviewed with her the laparoscopic cholecystectomy and the possible need to convert to an open procedure. We discussed some of the possible complications questions History of Present Illness Reason for Consultation: Cholecystitis Requesting Physician: Sonia Fraire DO Attending Physician: Koko Mix History of Present Illness Brigida is a 49 year-old female who originally presented to emergency d epartment Sunday evening due to nausea, vomiting, sweats, and RUQ/epigastric abdominal pain. She never had similar pain prior to this event however she did notice some bloating after eating in the past few months. She had a CT scan of abdomen and pelvis which showed gallstones but no clear evidence of cholecystitis. Questionable calcified gallstone at distal common bile duct. She then underwent Abdominal US which showed gallstones but no cholecystitis and common bile duct at 7 mm but no visual common bile duct stone. She then underwent MRCP which was negative. Her labs during her first admission T. bili- 0.4 -> 1.1 --> 0.5 AST - 83 --> 223 --> 98 ALT - 57 --> 316 --> 228 ALK - 78 --> 99 --> 87 She was discharged home on Sunday. She then presented again last night with similar pain, nausea and vomiting. Repeat US of gallbladder showed no stones or cholecystitis however gallbladder sludge. CBD dilated at 7-9mm. HIDA scan today showed delayed uptake in gallbladder with Morphine administration consistent with chronic cholecystitis. Uptake was seen in small bowel. Labs today: T. bili 1.3 AST 487 ALT 548 Alk 144 Allergies Allergy/AdvReac Type Severity Reaction Status Date / Time apple Allergy Unknown Verified 06/14/19 01:04 peach Allergy Unknown Verified 06/14/19 01:04 strawberry Allergy Unknown Verified 06/14/19 01:04 Home Medications Home Medications Medication Instructions Recorded Confirmed Type metformin 500 mg tablet 500 mg PO DAILY #90 tab 05/22/19 06/17/19 Rx multivitamin,[id number] 1 tab PO DAILY 06/04/19 06/17/19 History tablet Patient History Medical History Morbid obesity with BMI of 45.0-49.9, adult Pre-diabetes Elevated liver enzymes (Acute) Cholelithiasis Hyperglycemia Hepatomegaly Pyelonephritis Surgical History History of eye surgery History of tonsillectomy and adenoidectomy History of wisdom tooth extraction Family History Mother Diabetes Father Multiple sclerosis Social History Preferred Language: Indian Communication Ability: Effective Visual Impairment: No Limitations Hearing Ability: Normal In Processing Instructor Required: No Beliefs That Will Affect Care: None marital status: Current Living Situation: Significant Other current occupational status: employed current occupation: DIRECTOR MANAGEMENT Other Information That Helps Us Care for You: No Feels Safe at Home: Yes Safety Concerns: Feels Safe At This Time Smoking Status: Current some day smoker Tobacco Type: cigars ; Age Started Using Tobacco: 47 ; Cigarettes Per Day: occasional cigars ; Do You Dip or Chew Tobacco: No ; Second Hand Exposure: Yes (only when at cigar lounge) ; Tobacco Cessation Education Requested by Patient: No Hx Alcohol Use: Yes Alcohol type: beer and wine Alcohol Intake Frequency: Weekly Hx Substance Use: No Childhood Exposure to Second-Hand Smoke: Yes Dental Care, Regularly: Yes Physical Activity Frequency: Does not Exercise Seatbelt Use: always Sunscreen Use: Yes Review of Systems 2 Review of Systems: All systems reviewed & are unremarkable except as noted in HPI & below Physical Exam Constitutional: WD/WN, vitals as above + obese; no acute distress Respiratory: normal respiratory effort, lungs clear to auscultation Cardiovascular: RRR, no murmur, no edema Gastrointestinal (Abdomen): Inspection/Auscultation: abdomen normal to inspection; abdomen not distended Percussion/Palpation: + abdomen tender (RUQ) and abdomen soft; no guarding and abdomen not rigid Skin: no rashes, warm and dry Psychiatric: A+Ox3, euthymic affect Results & Data Vital Signs (Past 12 Hours) Vital Signs Temp Pulse Pulse Pulse Resp BP BP 06/17/19 15:17 36.7 C 57 L 16 139/98 06/17/19 05:10 36.5 C 47 L 16 140/94 06/17/19 04:44 66 20 148/94 H Pulse Ox 06/17/19 15:17 98 06/17/19 05:10 98 06/17/19 04:44 98 Laboratory Results 06/17/19 06/17/19 06/17/19 Range/Units 01:08 01:08 01:08 WBC 10.79 (4.8-10.8) K/uL RBC 4.59 (4.2-5.4) M/uL Hgb 14.6 (12.0-16.0) g/dL Hct 40.3 (37-47) % MCV 87.8 (80-100) fL MCH 31.8 (25-34) pg MCHC 36.2 H (32-36) g/dL RDW Std Deviation 41.4 (36.4-46.3) fL RDW Coeff of Gem 12.9 (11.5-14.5) % Plt Count 344 (130-400) K/uL MPV 8.7 (7.4-10.4) fL Immature Gran % (Auto) 0.2 % Neut % (Auto) 72.2 % Lymph % (Auto) 17.1 % [place] % (Auto) 9.4 % Eos % (Auto) 0.7 % Baso % (Auto) 0.4 % Immature Gran # (Auto) 0.02 (0.00-0.02) K/uL Neut # (Auto) 7.79 H (1.4-6.5) K/uL Lymph # (Auto) 1.85 (1.2-3.4) K/uL [place] # (Auto) 1.01 H (0.11-0.59) K/uL Eos # (Auto) 0.08 (0-0.5) K/uL Baso # (Auto) 0.04 (0-0.2) K/uL Sodium 140 (136-145) mmol/L Potassium 3.9 (3.5-5.1) mmol/L Chloride 109 H (98-107) mmol/L Carbon Dioxide 26 (21-32) mmol/L Anion Gap 5.0 (3-11) BUN 13 (7-18) mg/dl Creatinine 1.03 (0.6-1.2) mg/dl Est Cr Clr Drug Dosing 81.0 ml/min Est GFR ( Amer) 75.0 Est GFR (Non-Af Amer) 64.7 BUN/Creatinine Ratio 12.7 (10-20) Glucose 119 H (70-99) mg/dl Calcium 9.5 (8.5-10.1) mg/dl Total Bilirubin 1.3 H D (0.2-1) mg/dl Direct Bilirubin 0.8 H (0-0.2) mg/dl AST 487 H (15-37) U/L ALT 548 H (12-78) U/L Alkaline Phosphatase 144 H (45-117) U/L Total Protein 7.4 (6.4-8.2) gm/dl Albumin 3.4 (3.4-5.0) gm/dl Lipase 165 (73-393) U/L Urine Color Yellow Urine Appearance Clear (Clear) Urine pH 5.0 (4.5-7.5) Ur Specific [place] 1.014 (1.000-1.030) Urine Protein Negative (Negative) Urine Glucose (UA) Negative (Negative) Urine Ketones Negative (Negative) Urine Blood Trace H (Negative) Urine Nitrite Negative (Negative) Urine Bilirubin Negative (Negative) Urine Urobilinogen Negative (Negative) Ur Leukocyte Esterase Negative (Negative) Urine WBC (Auto) 1-5 (0-5) /hpf Urine RBC (Auto) 0-4 (0-4) /hpf U Hyaline Cast (Auto) 0 (0-5) /lpf U Epithel Cells (Auto) 5-10 H (0-5) /lpf Urine Bacteria (Auto) Negative (Negative) Diagnostic Findings CT scan of Abdomen and pelvis with IV contrast 06/13/19 IMPRESSION: 1. Findings suggest cystitis. Additionally, renal enhancement appears heterogeneous bilaterally. This could be seen in setting of pyelonephritis. Correlation with clinical findings and urinalysis will be required. 2. Cholelithiasis without clear CT evidence of acute cholecystitis. 3. A calcified gallstone is suspected within the distal common bile duct at the head of the pancreas. If there is clinical concern for acute cholecystitis an ultrasound of the right upper quadrant should be considered. 4. Hepatomegaly. 5. Additional findings as above. ULTRASOUND RIGHT UPPER QUADRANT ABDOMEN 06/13/19 CLINICAL HISTORY: Cholelithiasis and choledocholithiasis seen by CT.. COMPARISON STUDY: Abdominal CT dated 06/13/2019. TECHNIQUE: Real-time, grayscale, and color flow sonography of the right upper quadrant of the abdomen was performed. Images are reviewed in the transverse and longitudinal planes. FINDINGS: Liver: The liver is enlarged, measuring over 19 cm in length. Liver is heterogeneous and echotexture. There is no intrahepatic biliary ductal dilatation. The main portal vein is patent. Gallbladder: Shadowing gallstones are noted. Focal adenomyomatosis is noted in the fundal region. There is no gallbladder wall thickening or pericholecystic fluid. A sonographic Oates's sign is reportedly absent. The common bile duct measures up to 0.7 cm in diameter. Pancreas: Visualized portions of the pancreatic head and body are normal in appearance. The splenic vein is patent. Right kidney: Survey images of the right kidney demonstrate normal size and echotexture. There is no hydronephrosis. Ascites: None. IMPRESSION: 1. Cholelithiasis without sonographic evidence of acute cholecystitis. 2. The common bile duct measures up to 7 mm. The common duct stone questioned by CT is not visualized by ultrasound. 3. Mild hepatomegaly. Study: MRCP. 06/14/2019 HISTORY:, Dilated common bile duct FINDINGS: Unremarkable liver spleen. Pancreas is unremarkable. Probable small gallstone at the gallbladder fundus. Bladder ductal system is unremarkable. No evidence for choledocholithiasis. IMPRESSION: 1. Small gallstone at the gallbladder fundus. 2. Unremarkable biliary ductal system. 3. No evidence for choledocholithiasis. US gallbladder 06/17/2019 CLINICAL HISTORY: 49 years-old Female presenting with known gallstone, acute epigastric pain. TECHNIQUE: Real-time grayscale and limited color Doppler ultrasound imaging of the abdomen limited to the right upper quadrant was performed. COMPARISON: MRCP from 06/14/[address] of the abdomen and pelvis from 06/13/2019. FINDINGS: Pancreas: Visualized portions of the pancreatic head and body normal. Liver: Normal echogenicity and echotexture. The liver measures 20.3 cm in maximal sagittal dimension. No sonographic evidence of hepatic mass. Main portal vein patent with normal directional flow. Biliary: No intrahepatic biliary ductal dilatation. Common bile duct measures up to 7-9 mm in diameter. Gallbladder: Gallbladder sludge. No evidence of gallstones, gallbladder wall thickening, gallbladder distention, or pericholecystic fluid or inflammatory change. Adenomyomatosis may be present at the gallbladder fundus versus a Phrygian cap. Right kidney: Normal in appearance without evidence of hydronephrosis. Ascites: None. Other: None. IMPRESSION: 1. No cholelithiasis or cholecystitis. Gallbladder sludge suspected. 2. Top normal prominence of extrahepatic bile ducts. 3. Moderate hepatomegaly. NM hepatobiliary 06/17/2019 HISTORY: Pain. Nausea. ?cholecystitis COMPARISON: None. TECHNIQUE: Immediately following the intravenous administration of 5 mCi Tc-99m Choletec, dynamic anterior abdominal imaging was performed. FINDINGS: Uniform hepatic tracer accumulation is shown somewhat delayed activity within the gallbladder with delayed activity at 8 minutes demonstrated post morphine administration. Small bowel activity is noted at 60 minutes. IMPRESSION: 1. Delayed passage of isotope to the gallbladder. 2. This appearance is consistent with that of chronic calculus cholecystitis.
--- NOTE | 2019-06-17 17:38 | Consultation Report ---
DATE OF CONSULTATION: 06/17/2019 REASON FOR EVALUATION: Abnormal liver tests and cholecystitis. HISTORY OF PRESENT ILLNESS: The patient is a 49-year-old who for the past week has been having intermittent episodes of biliary colic. She presented to the hospital few days ago and was found to have what looks like chronic cholecystitis. She was released from the hospital to have her gallbladder removed electively; however, she returned last night with worsening biliary colic and was admitted and is scheduled to have laparoscopic cholecystectomy tomorrow with an intraoperative cholangiogram. She has had multiple tests to evaluate her gallbladder and bile ducts including an ultrasound, MRCP and CT scan. The ultrasound and MRI showed normal caliber bile duct and no stone. There is a vague suggestion of a possible calcified stone in the distal common bile duct on her CAT scan. Her liver tests are abnormal with a bilirubin of 1.3, 0.8 of which is direct. AST 47, ALT 548 and alkaline phosphatase 144. This is primarily a hepatocellular pattern and not a cholestatic pattern, one that you can associate with perihepatic inflammation from an inflamed gallbladder rather than a stone in the bile duct; however, I could be wrong. PAST MEDICAL HISTORY: Remarkable for prediabetes. MEDICATIONS: Metformin and multiple vitamin. ALLERGIES: APPLES, PEACHES, STRAWBERRIES. SOCIAL HISTORY: The patient is . She is a territory account manager. Drinks alcohol socially, no tobacco regularly. REVIEW OF SYSTEMS: Negative except for right upper quadrant pain. PHYSICAL EXAMINATION: GENERAL: The patient is overweight, in no acute distress. ABDOMEN: Soft. Bowel sounds are normal. There is tenderness in the right upper quadrant over the gallbladder and a mildly positive Oates sign as well. IMPRESSION: The patient has what appears to be chronic cholecystitis with biliary colic. Her liver tests are abnormal, but I think this is more likely representing some irritation of the liver parenchyma rather than a common duct stone as her ultrasound and MRCP are negative for choledocholithiasis. I agree with proceeding with a laparoscopic cholecystectomy and intraoperative cholangiogram tomorrow, if there is indeed a stone in the bile duct tomorrow, we can proceed with an ERCP later to remove the stone.
--- NOTE | 2019-06-17 19:27 | Hospitalist Progress Note ---
Date of Service June 17, 2019 Assessment & Plan (1) Elevated liver enzymes: HIDA today with concern for chronic cholecystitis. Very easily could have acute cholecystitis as well with recurrent abd pain, rising LFTs, etc. Gen surg and GI both consulted. Will have lap alma tomorrow with intra-op cholangiogram due to concern for CBD stone. NPO, IV fluids, pain control, and IV zosyn for now. (2) Dysfunctional gallbladder: HIDA scan with chronic cholecystitis. Some concern for CBD stone given the rising LFTs, prior imaging showing ?distal CBD stone, etc. To have lap alma tomorrow by Dr Chapman. (3) Cholelithiasis: as noted on multiple imaging studies see above (4) Pre-diabetes: history of consider hemoglobin a1c this admission (5) Morbid obesity with BMI of 45.0-49.9, adult: BMI 48.9 (6) DVT prophylaxis: holding chemical means due to upcoming surgery ambulation for now Subjective pt's RUQ abd pain is still present but improved from admission no nausea no vomiting denies dyspnea or chest pain pain that she had during her HIDA was similar to past episodes of RUQ abd pain Review of Systems Constitutional: no fever and no chills Respiratory: no cough and no dyspnea Cardiovascular: no chest pain Physical Exam Constitutional: + morbidly obese; no acute distress and no altered mental status Eyes: + anicteric sclerae ENMT: external ear and nose normal, oropharynx normal Respiratory: normal respiratory effort, lungs clear to auscultation Cardiovascular: RRR, no murmur, no edema Heart Sounds: normal S1 and normal S2 Vessels: posterior tibial pulses present and dorsalis pedis pulses present; no JVD Gastrointestinal (Abdomen): Inspection/Auscultation: normal bowel sounds; abdomen not distended Percussion/Palpation: + abdomen tender (RUQ ) and abdomen soft; no guarding and no hepatosplenomegaly Skin: no jaundice Psychiatric: A+Ox3, euthymic affect Results & Data Vital Signs (Past 12 Hours) Vital Signs Temp Pulse Resp BP Pulse Ox 06/17/19 15:17 36.7 C 57 L 16 139/98 98 Laboratory Results Laboratory Results - last 24 hr 06/17/19 06/17/19 06/17/19 01:08 01:08 01:08 WBC 10.79 RBC 4.59 Hgb 14.6 Hct 40.3 MCV 87.8 MCH 31.8 MCHC 36.2 H RDW Std Deviation 41.4 RDW Coeff of Gem 12.9 Plt Count 344 MPV 8.7 Immature Gran % (Auto) 0.2 Neut % (Auto) 72.2 Lymph % (Auto) 17.1 [place] % (Auto) 9.4 Eos % (Auto) 0.7 Baso % (Auto) 0.4 Immature Gran # (Auto) 0.02 Neut # (Auto) 7.79 H Lymph # (Auto) 1.85 [place] # (Auto) 1.01 H Eos # (Auto) 0.08 Baso # (Auto) 0.04 Sodium 140 Potassium 3.9 Chloride 109 H Carbon Dioxide 26 Anion Gap 5.0 BUN 13 Creatinine 1.03 Est Cr Clr Drug Dosing 81.0 Est GFR ( Amer) 75.0 Est GFR (Non-Af Amer) 64.7 BUN/Creatinine Ratio 12.7 Glucose 119 H Calcium 9.5 Total Bilirubin 1.3 H D Direct Bilirubin 0.8 H AST 487 H ALT 548 H Alkaline Phosphatase 144 H Total Protein 7.4 Albumin 3.4 Lipase 165 Urine Color Yellow Urine Appearance Clear Urine pH 5.0 Ur Specific [place] 1.014 Urine Protein Negative Urine Glucose (UA) Negative Urine Ketones Negative Urine Blood Trace H Urine Nitrite Negative Urine Bilirubin Negative Urine Urobilinogen Negative Ur Leukocyte Esterase Negative Urine WBC (Auto) 1-5 Urine RBC (Auto) 0-4 U Hyaline Cast (Auto) 0 U Epithel Cells (Auto) 5-10 H Urine Bacteria (Auto) Negative PG Care Time/CCT Total # of Minutes Spent Total Time Spent with Patient: Total time spent is greater than 50% in coordination of care (as documented) at patient's floor/unit and/or counseling patient: (1) Cholelithiasis Cholelithiasis location: gallbladder Cholecystitis presence: with cholecystitis Cholecystitis acuity: chronic Biliary obstruction: without biliary obstruction Qualified Code(s): K80.10 - Calculus of gallbladder with chronic cholecystitis without obstruction
[2019-06-18] MEDS: PIPERACILLIN/TAZOBACTAM 4.5 GM in DEXTROSE 5% 100 ML IV SCH ×3 (02:42→18:46)
[2019-06-18 05:46] LABS: Basophils # (auto) 0.04 K/uL (0-0.2); Basophils % (auto) 0.5 %; Eosinophils # (auto) 0.15 K/uL (0-0.5); Eosinophils % (auto) 1.8 %; Hemoglobin 13.7 g/dL (12.0-16.0); Immature Granulocytes # (auto) 0.01 K/uL (0.00-0.02); Immature Granulocytes % (auto) 0.1 %; Lymphocytes # (auto) 2.03 K/uL (1.2-3.4); Mean Corpuscular Hemoglobin 30.9 pg (25-34); Mean Corpuscular Hgb Conc 35.1 g/dL (32-36); Mean Corpuscular Volume 87.8 fL (80-100); Mean Platelet Volume 8.6 fL (7.4-10.4); Monocytes # (auto) 0.68 K/uL (0.11-0.59); Monocytes % (auto) 8.4 %; Neutrophils % (auto) 64.2 %; Platelet Count 322 K/uL (130-400); RDW Standard Deviation 42.1 fL (36.4-46.3); Red Blood Count 4.44 M/uL (4.2-5.4); White Blood Count 8.11 K/uL (4.8-10.8)
[2019-06-18 06:24] LABS: Albumin Level 3.1 gm/dl (3.4-5.0); BUN Creatinine Ratio 9.9 (10-20); Bilirubin Direct 0.4 mg/dl (0-0.2); Calcium 8.6 mg/dl (8.5-10.1); Est GFR (African American) 74.1; Est GFR (Non-African American) 63.9; Total Protein 6.7 gm/dl (6.4-8.2)
[2019-06-18] MEDS ORDERED: fentaNYL citrate 100 MCG/2 ML VIAL ONE ×2 (09:32→11:58)
[2019-06-18] MEDS ORDERED: MIDAZOLAM HCL 1 MG/ML 2ML VIAL ONE (09:32)
[2019-06-18] MEDS ORDERED: ACETAMINOPHEN 1000 MG/100 ML IV IV ONE (09:35)
--- NOTE | 2019-06-18 09:47 | Anesthesiology Consultation ---
Date of Service June 18, 2019 Assessment & Plan (1) Encounter for pre-operative examination: (2) History of wisdom tooth extraction: Chart Review Chart Review: Acceptable Risk for Surgery and Patient NOT seen in Pre Admission Testing Consults Requested none ASA ASA3 Proposed Anesthesia Anesthesia Type: General Risk / Benefits Reviewed With: PT / POA / Parent / Guardian, Accepts Plan and Informed Consent Obtained History Surgery Operation Date: 06/18/19 10:30 Proposed Procedures p Laparoscopic Cholecystectomy with Cholangiogram - Satya Chapman MD Height/Weight Height: 5 ft 3 in Weight: 125.1 kg Allergies Allergy/AdvReac Type Severity Reaction Status Date / Time apple Allergy Unknown Verified 06/14/19 01:04 peach Allergy Unknown Verified 06/14/19 01:04 strawberry Allergy Unknown Verified 06/14/19 01:04 Medications Home Medications Medication Instructions Recorded Confirmed Last Taken metformin 500 mg tablet 500 mg PO DAILY #90 tab 05/22/19 06/17/19 Unknown multivitamin,[id number] 1 tab PO DAILY 06/04/19 06/17/19 Unknown tablet Active Medications Generic Name Dose Route Start Last Admin Trade Name Freq PRN Reason Stop Dose Admin Piperacillin Sod/Tazobactam 120 mls @ 30 mls/hr 06/17/19 10:00 06/18/19 10:06 Sod 4.5 gm/ Dextrose IV 06/27/19 09:59 30 mls/hr Q8H HAL Administration Protocol Morphine Sulfate 2 mg 06/17/19 05:07 06/17/19 12:00 Morphine Sulfate IV 07/01/19 05:06 2 mg Q4H PRN Administration Pain NPO Date Last Intake of Fluids: 06/16/19 Time Last Intake of Fluids: 22:00 Date Last Intake of Solids: 06/16/19 Time Last Intake of Solids: 18:00 Last Intake of Solids Comment: NPO since admission Past Medical History Medical History Morbid obesity with BMI of 45.0-49.9, adult Pre-diabetes Elevated liver enzymes (Acute) Cholelithiasis Hyperglycemia Hepatomegaly Pyelonephritis Exercise / Class Metabolic Activity III < 4 Walking/Shop/Light housework Past Family History Family History Mother Diabetes Father Multiple sclerosis Past Surgical History Surgical History History of eye surgery History of tonsillectomy and adenoidectomy History of wisdom tooth extraction Past Anesthesia History No Hx of Anesthesia Complications History of PONV No Hx of PONV and No Hx of Motion Sickness Social History Smoking Status: Current some day smoker tobacco type: cigars Smoking cigarettes per day: occasional cigars Do You Dip or Chew Tobacco: No Hx Alcohol Use: Yes Alcohol type: beer and wine alcohol intake frequency: holidays/special occasions only Hx Substance Use: No substance use type: does not use Review of Systems Negative for chest pain or shortness of breath. Patient denies active symptoms of GERD. Physical Exam Vital Signs Last Vital Signs Temp 37.2 C 06/18/19 10:42 Pulse 70 06/18/19 10:42 Resp 20 06/18/19 10:42 BP 128/93 06/18/19 10:42 Pulse Ox 96 06/18/19 10:42 Constitutional + morbidly obese ENMT Mouth: no TMJ abnormality and oral opening not small Thyromental Distance: > or= 3.5 Finger Breadths Mallampati Class: I Neck normal visual inspection; neck extension not limited Respiratory normal respiratory effort Auscultation: lungs clear to auscultation bilaterally Cardiovascular Rate/Rhythm: regular rate and regular rhythm Heart Sounds: no murmur Neurologic moves all extremities Psychiatric Orientation: alert and oriented x 3 Testing Laboratory Results 06/18/19 05:32 06/18/19 05:32 Urine Color Yellow 06/17/19 01:08 Urine Appearance Clear (Clear) 06/17/19 01:08 Urine pH 5.0 (4.5-7.5) 06/17/19 01:08 Ur Specific [place] 1.014 (1.000-1.030) 06/17/19 01:08 Urine Protein Negative (Negative) 06/17/19 01:08 Urine Glucose (UA) Negative (Negative) 06/17/19 01:08 Urine Ketones Negative (Negative) 06/17/19 01:08 Urine Nitrite Negative (Negative) 06/17/19 01:08 Ur Leukocyte Esterase Negative (Negative) 06/17/19 01:08 Urine WBC (Auto) 1-5 /hpf (0-5) 06/17/19 01:08 Urine RBC (Auto) 0-4 /hpf (0-4) 06/17/19 01:08 U Hyaline Cast (Auto) 0 /lpf (0-5) 06/17/19 01:08 U Epithel Cells (Auto) 5-10 /lpf (0-5) H 06/17/19 01:08 Urine Bacteria (Auto) Negative (Negative) 06/17/19 01:08 06/18/19 06/17/19 06:05 23:29 POC Glucose 82 76
[2019-06-18] MEDS ORDERED: HEPARIN (PORCINE) 1000 UNIT/ML 10 ML (CATH LAB USE ONLY) ONE (10:53)
[2019-06-18] MEDS ORDERED: CONRAY 60% 50 ML VIAL ONE (10:54)
[2019-06-18] MEDS ORDERED: BUPIVACAINE 0.5 % 5 MG/1 ML MPF 30ML VIAL ONE (10:54)
[2019-06-18] MEDS ORDERED: CEFAZOLIN 250 MG/ML 1 GM VIAL ONE (10:54)
--- NOTE | 2019-06-18 11:11 | Hospitalist Progress Note ---
Date of Service June 18, 2019 Assessment & Plan (1) Elevated liver enzymes: Improving. 2nd to (probable) acute on chronic cholecystitis. Appreciate Gen surg and GI consults. To OR today with Dr Chapman for lap alma and intra-op cholangiogram due to concern for CBD stone. NPO, IV fluids, pain control, IV zosyn. (2) Dysfunctional gallbladder: HIDA scan with chronic cholecystitis. Some concern for CBD stone given the rising LFTs, prior imaging showing ?distal CBD stone, etc. To OR today for lap alma & intra-op cholangiogram with Dr Chapman. If cholangiogram shows CBD stones will have ERCP with Dr Jasso. (3) Cholelithiasis: as noted on multiple imaging studies see above (4) Pre-diabetes: history of check a1c tomorrow am (5) Morbid obesity with BMI of 45.0-49.9, adult: BMI 48.9 (6) DVT prophylaxis: holding chemical means due to upcoming surgery today ambulation family updated at bedside will change observation status to full admission status Subjective patient waiting for lap alma today RUQ pain nearly resolved no nausea/emesis no dyspnea overall feeling much better Review of Systems Constitutional: no fever and no chills Respiratory: no dyspnea Cardiovascular: no chest pain Gastrointestinal: no abdominal pain, no nausea and no vomiting Physical Exam Constitutional: + morbidly obese; no acute distress and no altered mental status Eyes: + anicteric sclerae ENMT: external ear and nose normal, oropharynx normal Respiratory: normal respiratory effort, lungs clear to auscultation Cardiovascular: RRR, no murmur, no edema Heart Sounds: normal S1 and normal S2 Vessels: posterior tibial pulses present and dorsalis pedis pulses present; no JVD Gastrointestinal (Abdomen): Inspection/Auscultation: normal bowel sounds; abdomen not distended Percussion/Palpation: abdomen soft; abdomen nontender, no guarding and no hepatosplenomegaly Skin: no jaundice Psychiatric: A+Ox3, euthymic affect Results & Data Vital Signs (Past 12 Hours) Vital Signs Temp Pulse Pulse Resp BP Pulse Ox 06/18/19 10:42 37.2 C 70 70 20 128/93 96 06/18/19 07:05 36.7 C 62 18 127/79 97 06/17/19 23:19 36.8 C 60 16 114/77 98 Laboratory Results Laboratory Results - last 24 hr 06/17/19 06/18/19 06/18/19 23:29 05:32 05:32 WBC 8.11 RBC 4.44 Hgb 13.7 Hct 39.0 MCV 87.8 MCH 30.9 MCHC 35.1 RDW Std Deviation 42.1 RDW Coeff of Gem 13.0 Plt Count 322 MPV 8.6 Immature Gran % (Auto) 0.1 Neut % (Auto) 64.2 Lymph % (Auto) 25.0 [place] % (Auto) 8.4 Eos % (Auto) 1.8 Baso % (Auto) 0.5 Immature Gran # (Auto) 0.01 Neut # (Auto) 5.20 Lymph # (Auto) 2.03 [place] # (Auto) 0.68 H Eos # (Auto) 0.15 Baso # (Auto) 0.04 Sodium 140 Potassium 4.0 Chloride 110 H Carbon Dioxide 24 Anion Gap 6.0 BUN 10 Creatinine 1.04 Est Cr Clr Drug Dosing 86.0 Est GFR ( Amer) 74.1 Est GFR (Non-Af Amer) 63.9 BUN/Creatinine Ratio 9.9 L Glucose 84 POC Glucose 76 Calcium 8.6 Total Bilirubin 1.0 Direct Bilirubin 0.4 H AST 171 H ALT 460 H Alkaline Phosphatase 133 H Total Protein 6.7 Albumin 3.1 L 06/18/19 06:05 WBC RBC Hgb Hct MCV MCH MCHC RDW Std Deviation RDW Coeff of Gem Plt Count MPV Immature Gran % (Auto) Neut % (Auto) Lymph % (Auto) [place] % (Auto) Eos % (Auto) Baso % (Auto) Immature Gran # (Auto) Neut # (Auto) Lymph # (Auto) [place] # (Auto) Eos # (Auto) Baso # (Auto) Sodium Potassium Chloride Carbon Dioxide Anion Gap BUN Creatinine Est Cr Clr Drug Dosing Est GFR ( Amer) Est GFR (Non-Af Amer) BUN/Creatinine Ratio Glucose POC Glucose 82 Calcium Total Bilirubin Direct Bilirubin AST ALT Alkaline Phosphatase Total Protein Albumin PG Care Time/CCT Total # of Minutes Spent Total Time Spent with Patient: Total time spent is greater than 50% in coordination of care (as documented) at patient's floor/unit and/or counseling patient: (1) Cholelithiasis Cholelithiasis location: gallbladder Cholecystitis presence: with cholecystitis Cholecystitis acuity: chronic Biliary obstruction: without bi liary obstruction Qualified Code(s): K80.10 - Calculus of gallbladder with chronic cholecystitis without obstruction
[2019-06-18] MEDS ORDERED: PROMETHAZINE HCL 12.5 MG in SODIUM CHLORIDE 0.9% 50 ML IV PRN (11:15)
[2019-06-18] MEDS ORDERED: ePHEDrine sulfate 50 MG/ML AMP IV PRN (11:15)
[2019-06-18] MEDS ORDERED: ATROPINE SULFATE 0.1 MG/ML 10ML SYR IV PRN (11:15)
[2019-06-18] MEDS ORDERED: ONDANSETRON INJ 2 MG/ML 2 ML VIAL IV PRN (11:15)
--- NOTE | 2019-06-18 11:34 | History & Physical Bridge Note ---
Date of Service June 18, 2019 History & Physical Bridge Note I have examined the patient, reviewed the History & Physical and in the interval since the performance of the History & Physical I have noted the following changes of clinical significance: no changes noted
[2019-06-18] MEDS ORDERED: DEXAMETHASONE SOD INJ 4 MG/ML VIAL ONE (11:55)
[2019-06-18] MEDS ORDERED: ONDANSETRON INJ 2 MG/ML 2 ML VIAL ONE (11:55)
[2019-06-18] MEDS ORDERED: GLYCOPYRROLATE 0.2 MG/ML VIAL ONE (11:55)
[2019-06-18] MEDS ORDERED: PROPOFOL IV EMULSION 10 MG/ML 20 ML VIAL IV ONE (11:55)
[2019-06-18] MEDS ORDERED: LIDOCAINE HCL 2% 2 ML VIAL/AMP(20MG/ML) INFIL ONE (11:55)
[2019-06-18] MEDS ORDERED: ROCURONIUM BROMIDE 10 MG/ML 5 ML VIAL ONE (11:55)
[2019-06-18] MEDS ORDERED: NEOSTIGMINE METHYLSULFATE 5 MG/5 ML SYR ONE (11:55)
--- NOTE | 2019-06-18 12:32 | Fluoroscopy Report ---
INTRAOPERATIVE RADIOGRAPHS CLINICAL HISTORY: Intraoperative cholangiogram. Fluoroscopy time: 28 seconds. FINDINGS: 7 spot fluoroscopic images of the right upper quadrant from an intraoperative cholangiogram are obtained. Correlation is made with MRCP dated 06/14/2019. Cholecystectomy clips are identified. There is smooth contrast opacification of the common bile duct. The common bile duct appears normal i n caliber. No filling defects are seen to suggest choledocholithiasis. There is free spillage of cont rast into the duodenum. IMPRESSION: There is no evidence of choledocholithiasis. Electronically signed by: Ricco Torres M.D. 06/18/2019 12:31 PM
--- NOTE | 2019-06-18 12:44 | Post Operative Brief Note ---
Immediate Post Op Note v1 Date of Surgery June 18, 2019 Pre & Post Diagnosis Operation Date: 06/18/19 10:30 Pre-Op Diagnosis: CHOLECYSTITIS Post-Op Diagnosis: CHOLECYSTITIS I identified the patient and participated in the time-out.: Yes Procedure Operation Date: 06/18/19 10:30 Actual Procedures p Laparoscopic Cholecystectomy with Cholangiogram(Not Applicable) - Satya Chapman MD Surgeon Satya Chapman MD Electronic Component Processor Niurka Galdamez PA-C Estimated Blood Loss 5 Findings Consistent with Post-Op Diagnosis Specimens Gallbladder and contents Anesthesia Type General Complications none
[2019-06-18] MEDS: fentaNYL citrate 100 MCG/2 ML VIAL IV PRN ×2 (13:04→13:09)
[2019-06-18] MEDS: HYDROmorphone INJ 2 MG/ML SYR/VIAL IV PRN ×5 (13:17→13:45)
--- NOTE | 2019-06-18 13:23 | Operative Report ---
DATE OF OPERATION: 06/18/2019 PREOPERATIVE DIAGNOSIS: Cholelithiasis. POSTOPERATIVE DIAGNOSIS: Cholelithiasis. PROCEDURE: Laparoscopic cholecystectomy with intraoperative cholangiogram. SURGEON: Satya Chapman MD. [employer]CH STORE MANAGER: Niurka Galdamez PA-C. FINDINGS: The gallbladder appeared to have stones within it. The cystic duct was narrow. The gallbladder was elongated. The liver was of normal size and contour. Visible bowel appeared normal. Cholangiogram demonstrated no evidence of filling defects in the ductal system. TECHNIQUE: The patient was given a general anesthetic and the area was prepped and draped in the usual sterile fashion. Transverse incision was made below the umbilicus, carried down through the subcutaneous tissue to the fascia, which was grasped with 2 Katie clamps and incised between. The peritoneum was identified, incised, and the introducer was placed bluntly. The abdomen was then insufflated to a pressure of 15 mmHg with carbon dioxide. The upper midline, midclavicular and anterior axillary introducers were placed under direct vision through small skin incisions. Traction was placed on the gallbladder and the peritoneum and connective tissue of the neck and infundibulum of the gallbladder were peeled down towards the common bile duct. The infundibulum was dissected away from the liver on the lateral side. The triangle of [place] was then opened and the peritoneum on the medial side was opened to free the infundibulum allowing for better mobility. Further dissection of connective tissue exposed the cystic duct lymph node. This was clamped and then away from the gallbladder, which allowed better exposure to the triangle of [place], which was dissected bluntly. The cystic artery was seen behind the cystic duct. This was easily isolated, clamped and divided. That allowed for good mobility and a very good window. Further dissection of connective tissue away from the cystic duct allowed me to skeletonize and also identify the fact that it was rather narrow. The gallbladder-cystic duct junction was also identified with confidence. A clip was placed on the cystic duct near the gallbladder and it was partially transected. The cholangiocatheter was placed and cholangiogram was performed. Findings showed no evidence of dilatation of the common bile duct and there was no evidence of any filling defects. The cholangiocatheter was removed and 2 clips were placed on the proximal cystic duct and transection was completed. The gallbladder was then peeled off the liver bed using electrocautery. It was placed into an Endobag and brought out through the upper midline incision. Then, the introducer was replaced. The liver was elevated. The subhepatic space was irrigated. The irrigation was removed. The previously placed clips were inspected and were intact. The gallbladder bed of the liver was inspected and there was no bleeding. The subdiaphragmatic and subhepatic spaces were then irrigated and irrigation removed. Inspection of the gallbladder bed of the liver was performed again and there was no bleeding. The gas was allowed to escape and the introducers were removed. Fascia of the umbilical and upper midline introducer sites was closed with interrupted 0 Vicryl and skin of all the incisions was closed with 4-0 Monocryl in either an interrupted or running subcuticular fashion. The skin was cleansed, dried, benzoin placed, Steri-Strips applied. The estimated blood loss was 5 mL. Sponge, needle and instrument counts were correct prior to closure. The patient tolerated the surgical procedure without complication and was transferred to recovery. I attest to the content of the Intraoperative Record and any orders documented therein. Any exception s are noted below.
--- NOTE | 2019-06-18 14:10 | Anesthesiology Progress Note ---
Date of Service June 18, 2019 Anesthesia Post Procedure Vital Signs Vital Signs: Temp Pulse Pulse Pulse Resp BP Pulse Ox 06/18/19 13:55 36.6 C 76 15 144/98 H 96 06/18/19 13:45 69 15 145/90 H 96 06/18/19 13:35 71 15 139/97 96 06/18/19 13:25 72 14 145/99 H 96 06/18/19 13:15 66 14 149/93 H 97 06/18/19 13:05 67 18 141/83 H 100 06/18/19 12:58 36.3 C L 73 17 134/69 99 06/18/19 10:42 37.2 C 70 70 20 128/93 96 06/18/19 07:05 36.7 C 62 18 127/79 97 06/17/19 23:19 36.8 C 60 16 114/77 98 06/17/19 15:17 36.7 C 57 L 16 139/98 98 Pain Intensity Abdomen: Pain Intensity: 3 Head: Pain Intensity: 7 Transfer of Care Handoff Completed per policy Notes Mental Status: alert / awake / arousable and participated in evaluation Patient Amnestic to Procedure: Yes Nausea / Vomiting: adequately controlled Pain: adequately controlled Airway Patency, RR, SpO2: stable & adequate BP & HR: stable & adequate Hydration State: stable & adequate Anesthetic Complications: no major complications apparent and Pt Satisfied with anesthetic care
[2019-06-18] MEDS ORDERED: OXYCODONE/ACETAMINOPHEN 5mg/325mg TAB PO PRN (14:24)
--- NOTE | 2019-06-18 16:49 | Progress Note ---
DATE: 06/18/2019 The patient underwent a laparoscopic cholecystectomy today successfully. Her gallbladder was inflamed. Dr. Chapman was successful in completing an operative cholangiogram that showed no filling defects in the common bile duct, which was of normal caliber. The patient is now postop and doing relatively well except for a little mild incisional pain. Her LFT abnormalities prior to the procedure were primarily hepatocellular and consistent with some inflammation of the liver due to its proximity to the gallbladder and not from a common bile duct stone. IMPRESSION: The patient does not have a common duct stone and there is no need to proceed with an ERCP. We will sign off at this point and please contact if any further input is needed.
[2019-06-19] MEDS: PIPERACILLIN/TAZOBACTAM 4.5 GM in DEXTROSE 5% 100 ML IV SCH (02:27)
[2019-06-19 05:31] LABS: Hematocrit (blood only) 37.9 % (37-47); Hemoglobin 13.1 g/dL (12.0-16.0); Mean Corpuscular Hemoglobin 30.8 pg (25-34); Mean Corpuscular Hgb Conc 34.6 g/dL (32-36); Mean Corpuscular Volume 89.2 fL (80-100); Mean Platelet Volume 9.2 fL (7.4-10.4); Platelet Count 353 K/uL (130-400); RDW Standard Deviation 42.1 fL (36.4-46.3); Red Blood Count 4.25 M/uL (4.2-5.4)
[2019-06-19 05:58] LABS: BUN Creatinine Ratio 10.7 (10-20); Calcium 8.6 mg/dl (8.5-10.1); Creatinine Clr Calc Pharmacy 93.2 ml/min; Est GFR (African American) 81.6; Est GFR (Non-African American) 70.4; Potassium 3.6 mmol/L (3.5-5.1)
[2019-06-19 06:02] LABS: Albumin Globulin Ratio 0.9 (0.9-2); Bilirubin,Total 0.6 mg/dl (0.2-1); Globulin 3.5 gm/dl (2.5-4.0); Total Protein 6.5 gm/dl (6.4-8.2)
--- NOTE | 2019-06-19 08:13 | Anesthesiology Progress Note ---
Date of Service June 19, 2019 Anesthesia Post Procedure Vital Signs Vital Signs: Temp Pulse Pulse Pulse Resp BP BP 06/19/19 07:05 36.5 C 56 L 16 128/90 06/19/19 04:00 36.8 C 58 L 16 137/85 06/18/19 22:57 37.0 C 70 16 137/90 06/18/19 19:18 37.6 C H 82 18 126/84 06/18/19 17:32 36.8 C 79 16 142/87 H 06/18/19 16:39 36.6 C 95 H 16 141/85 H 06/18/19 15:37 36.8 C 83 16 136/90 06/18/19 14:26 36.8 C 73 12 152/83 H 06/18/19 14:05 36.6 C 78 19 137/85 06/18/19 13:55 36.6 C 76 15 144/98 H 06/18/19 13:45 69 15 145/90 H 06/18/19 13:35 71 15 139/97 06/18/19 13:25 72 14 145/99 H 06/18/19 13:15 66 14 149/93 H 06/18/19 13:05 67 18 141/83 H 06/18/19 12:58 36.3 C L 73 17 134/69 06/18/19 10:42 37.2 C 70 70 20 128/93 Pulse Ox 06/19/19 07:05 97 06/19/19 04:00 94 06/18/19 22:57 96 06/18/19 19:18 95 06/18/19 17:32 93 06/18/19 16:39 95 06/18/19 15:37 97 06/18/19 14:26 98 06/18/19 14:05 97 06/18/19 13:55 96 06/18/19 13:45 96 06/18/19 13:35 96 06/18/19 13:25 96 06/18/19 13:15 97 06/18/19 13:05 100 06/18/19 12:58 99 06/18/19 10:42 96 Pain Intensity Abdomen: Pain Intensity: 3 Head: Pain Intensity: 7 Notes Mental Status: alert / awake / arousable Patient Amnestic to Procedure: Yes Nausea / Vomiting: adequately controlled Pain: adequately controlled Airway Patency, RR, SpO2: stable & adequate BP & HR: stable & adequate Hydration State: stable & adequate Anesthetic Complications: no major complications apparent and Pt Satisfied with anesthetic care
--- NOTE | 2019-06-19 10:43 | Surgery Progress Note ---
Date of Service June 19, 2019 Assessment & Plan (1) Cholelithiasis: Postoperative day #1 status post laparoscopic cholecystectomy Doing well Tolerating diet Bilirubin has returned to normal and transaminases are continuing to decrease From surgical standpoint can be discharged to home Postoperative activity restrictions discussed Can follow-up in the office in 2 weeks Subjective Postoperative day #1, status post laparoscopic cholecystectomy Has abdominal soreness Tolerated regular diet Has been ambulating Denies nausea and vomiting Past flatus but no bowel movement as yet Results & Data Vital Signs (Past 12 Hours) Vital Signs Temp Pulse Resp BP Pulse Ox 06/19/19 07:05 36.5 C 56 L 16 128/90 97 06/19/19 04:00 36.8 C 58 L 16 137/85 94 06/18/19 22:57 37.0 C 70 16 137/90 96 Laboratory Results 06/19/19 06/19/19 06/19/19 Range/Units 08:16 04:52 04:52 WBC 10.80 (4.8-10.8) K/uL RBC 4.25 (4.2-5.4) M/uL Hgb 13.1 (12.0-16.0) g/dL Hct 37.9 (37-47) % MCV 89.2 (80-100) fL MCH 30.8 (25-34) pg MCHC 34.6 (32-36) g/dL RDW Std Deviation 42.1 (36.4-46.3) fL RDW Coeff of Gem 13.0 (11.5-14.5) % Plt Count 353 (130-400) K/uL MPV 9.2 (7.4-10.4) fL Sodium 138 (136-145) mmol/L Potassium 3.6 (3.5-5.1) mmol/L Chloride 108 H (98-107) mmol/L Carbon Dioxide 23 (21-32) mmol/L Anion Gap 7.0 (3-11) BUN 10 (7-18) mg/dl Creatinine 0.96 (0.6-1.2) mg/dl Est Cr Clr Drug Dosing 93.2 ml/min Est GFR ( Amer) 81.6 Est GFR (Non-Af Amer) 70.4 BUN/Creatinine Ratio 10.7 (10-20) Glucose 111 H (70-99) mg/dl POC Glucose 91 (70-99) Calcium 8.6 (8.5-10.1) mg/dl Total Bilirubin 0.6 (0.2-1) mg/dl AST 68 H (15-37) U/L ALT 311 H (12-78) U/L Alkaline Phosphatase 109 (45-117) U/L Total Protein 6.5 (6.4-8.2) gm/dl Albumin 3.0 L (3.4-5.0) gm/dl Globulin 3.5 (2.5-4.0) gm/dl Albumin/Globulin Ratio 0.9 (0.9-2) 06/18/19 Range/Units 14:04 WBC (4.8-10.8) K/uL RBC (4.2-5.4) M/uL Hgb (12.0-16.0) g/dL Hct (37-47) % MCV (80-100) fL MCH (25-34) pg MCHC (32-36) g/dL RDW Std Deviation (36.4-46.3) fL RDW Coeff of Gem (11.5-14.5) % Plt Count (130-400) K/uL MPV (7.4-10.4) fL Sodium (136-145) mmol/L Potassium (3.5-5.1) mmol/L Chloride (98-107) mmol/L Carbon Dioxide (21-32) mmol/L Anion Gap (3-11) BUN (7-18) mg/dl Creatinine (0.6-1.2) mg/dl Est Cr Clr Drug Dosing ml/min Est GFR ( Amer) Est GFR (Non-Af Amer) BUN/Creatinine Ratio (10-20) Glucose (70-99) mg/dl POC Glucose 89 (70-99) Calcium (8.5-10.1) mg/dl Total Bilirubin (0.2-1) mg/dl AST (15-37) U/L ALT (12-78) U/L Alkaline Phosphatase (45-117) U/L Total Protein (6.4-8.2) gm/dl Albumin (3.4-5.0) gm/dl Globulin (2.5-4.0) gm/dl Albumin/Globulin Ratio (0.9-2) (1) Cholelithiasis Cholelithiasis location: gallbladder Cholecystitis presence: with cholecystitis Cholecystitis acuity: chronic Biliary obstruction: without biliary obstruction Qualified Code(s): K80.10 - Calculus of gallbladder with chronic cholecystitis without obstruction
[2019-06-19 12:07] VITALS: BP 123/85; TEMP 97.9; O2SAT 98
--- NOTE | 2019-06-19 12:24 | Discharge Summary ---
Date of Service date of admission: June 17, 2019 date of discharge: June 19, 2019 Admission HPI Per Admitting Provider Brigida Martinez is a pleasant 49yo female with history of cholelithiasis presenting with RUQ and epigastric pain. She was recently admitted from 06/13 - 06/15 with similar complaints. At that time she was found to have dilatation of the CBD to 7mm and cholelithiasis on US imaging. MRCP was performed which showed a small gallstone at the gallbladder fundus and an unremarkable biliary ductal system - no choledocholithiasis. She was treated with Zosyn. GI was consulted and suspected transient blockage of the CBD. Patient was discharged home with referral to General Surgery - she has an appointment with Dr. Bermeo for 06/19/19. She reports "feeling off" all day today - RUQ pain and nausea. She ate a lite dinner around 18:00 then developed RUQ and epigastric discomfort around 19:30. Her symptoms progressed and she came to the ER around 22:00. She denies fevers/chills/vomiting/diarrhea/constipation/jaundice/icterus/change in stool or urine color. No additional complaints at this time. She is presently feeling well after receiving Dilaudid in the ER. Principal Diagnosis gallstones, abnormal LFTs, chronic cholecystitis s/p laparoscopic cholecystectomy Discharge Exam Constitutional + morbidly obese; no acute distress and no altered mental status Eyes + anicteric sclerae ENMT external ear and nose normal, oropharynx normal Respiratory normal respiratory effort, lungs clear to auscultation Cardiovascular RRR, no murmur, no edema Heart Sounds: normal S1 and normal S2 Vessels: posterior tibial pulses present and dorsalis pedis pulses present; no JVD Gastrointestinal (Abdomen) Inspection/Auscultation: normal bowel sounds; abdomen not distended Percussion/Palpation: abdomen soft; abdomen nontender, no guarding and no hepatosplenomegaly Skin no jaundice abdominal wall incisions clean/dry/intact Psychiatric A+Ox3, euthymic affect Discharge Data Allergies Allergy/AdvReac Type Severity Reaction Status Date / Time apple Allergy Unknown Verified 06/24/19 10:09 peach Allergy Unknown Verified 06/24/19 10:09 strawberry Allergy Unknown Verified 06/24/19 10:09 Consultations General Surgery - Satya Chapman MD [facility] Gastroenterology - Luis Eduardo Jasso MD Procedures Performed Operation Date: 06/18/19 Laparoscopic Cholecystectomy with Cholangiogram - Satya Chapman MD Ordered Studies 1. u/s gallbladder - biliary sludge, top-normal CBD. 2. HIDA scan - findings c/w chronic cholecystitis. Hospital Course (1) Chronic cholecystitis: After a recent hospital stay from 06/13/2019 to 06/15/2019 for abnormal LFTs, gallstones, and biliary colic the patient presented once again with RUQ abdominal pain & abnormal LFTs. In fact her LFTs had trended up since her previous hospital discharge. The patient was placed on IV antibiotic therapy, made NPO, given IVF, and general surgery/GI were both consulted. HIDA scan showed findings consistent with chronic cholecystitis. On hospital day #2 Dr Satya Chapman from general surgery took her to the OR and performed laparoscopic cholecystectomy without incident. Intra-op cholangiogram was also performed and this did NOT show choledocholithiasis. Post-op the patient did well from a medical & surgical standpoint. She tolerated a diet and passed flatus. Surgical incision sites were clean and stable. LFTs started to trend down on hospital day #3. She will follow-up with general surgery in about 2 weeks post-op. (2) Elevated liver enzymes: Improved prior to discharge. 2nd to chronic cholecystitis. She underwent uncomplicated laparoscopic cholecystectomy by Dr Chapman. She was asked to avoid tylenol and alcohol until her LFTs could be rechecked as an outpatient within 1 week of discharge. (3) Dysfunctional gallbladder: HIDA scan showed chronic cholecystitis. There was some concern for CBD stone given the rising LFTs, imaging from her prior hospitalization showing ?distal CBD stone, etc. Thus, during the laparoscopic cholecystectomy, an intra-op cholangiogram was performed by Dr Chapman. The cholangiogram did NOT show CBD stones. Thus, ERCP was deferred by Dr Jasso from [facility]. (4) Cholelithiasis: as noted on multiple imaging studies see above (5) Pre-diabetes: history of she will continue metformin daily (6) Morbid obesity with BMI of 45.0-49.9, adult: BMI 48.9 Total Time Total Time Spent Total Time Spent (In Minutes): 25 Total Time Includes: Examination of the Patient, Discharge Planning and Medication Reconciliation Discharge Plan Discharge Items Patient Disposition: Home - Self-Care Reason For Visit: CHOLECYSTITIS Discharge Diagnosis: cholecystitis (sick gall bladder) gallstones Goals: 1. treat abdominal pain 2. remove gall bladder 3. rule out gallstones in the gall bladder duct (this was indeed ruled out during the surgery) Activity: Per Instructions section Lifting Comment: see instructions below Non-emergency contact: Primary Care Provider and Surgeon Call non-emergency contact if: you have any medication questions, your symptoms worsen, your pain is not controlled, your pain is worsening, your pain is unusual for you, your pain is concerning for you, you have a fever, your wound has increased redness, your wound has increased drainage and your wound pain has increased Follow-up/Referrals: Leonora Rider MD [Primary Care Provider] - 06/24/19 10:15 am (Please, follow up with Dr. Rider on SundayJune 24 at 10:15 am. *If you need to change this appointment, call the office at [phone].) Satya Chapman MD [Physician] - 07/10/19 3:30 pm (Please, follow up at [facility] Surgery Office with Dr. Chapman on July 10 at 3:30 pm. *This was his 1st available appointment. His nurse said that you can call their office, if you are having any concerns and they will arrange a sooner appointment. The office is located at [address] in [place]. The office phone number is [phone].) Diet: Carb Consistent or DM2 and Low Fat Addtl Attending Provider Instructions: Surgery Instructions: Post-Surgical ~Discharge Instructions Activity Recommendations: - lifting limitation: (10 pounds for 2 weeks), - exercise/sex/sports limit: (nonstrenuous for 2 weeks), - driving or machine use limit: (none for 1 week), - Shower/bathe limit: (may shower beginning tomorrow) Diet: - Resume previous diet SPECIAL CARE INSTRUCTIONS: - May shower in 24 hours. Let water run over area and pat dry. - Leave steri strips on for one week. - Call the surgeon's office with any questions or concerns - - (ex. temperature higher than 101 degrees F, excessive bleeding or pain). MEDICATIONS: - Resume previous medications unless instructed otherwise by your surgeon. - Ibuprofen 600 mg every 6 hours with food - oxycodone 5mg every 6 hours as needed for pain FOLLOW UP VISIT: - If not already scheduled, please call the office to schedule a two week follow-up appointment. Office number Additional instructions from Koko Mix - hospitalist - * would avoid tylenol since your liver tests are still mildly elevated * would avoid alcohol * ok to use ibuprofen for pain as needed * may use prescription oxycodone 5mg every 6 hours as needed for pain * know that the oxycodone WILL cause constipation * it can also make you drowsy; thus no driving while on pain meds and NO alcohol while using pain meds * prescription called to your pharmacy for you * if you have constipation from the oxycodone take a combination of mzyv-kwk-aalbial miralax with senakot * please have your family doctor recheck your liver function tests in 1 week to ensure normalization Pending Studies at Discharge: Yes Studies:: Pathology from the gall bladder Stand-Alone Forms: Call Back Authorization, [facility], Opio[facility] Pain [facility], Work/School Release (Inpt), Smoking Cessation Medications and DC Order Prescriptions: Continued metformin 500 mg tablet 500 mg PO DAILY Qty: 90 RF: 1 Complete Multivitamin tablet 1 tab PO DAILY RF: 0 Discharge Orders: Discharge Order (Routine); Ordered 06/19/19 Ordered By: Koko Kothari/Other Patient Handouts: Cooking Tips Low Fat Admission Data Admit Date/Time: 06/18/19 11:09 Attending Provider: Koko Mix Admit Provider: Sonia Fraire Primary Care Provider: Leonora Rider Other Providers: Luis Eduardo Jasso ; Satya Chapman Other Interventions: Discharge Summary Assessment (RN) Last Done: 06/19/19 12:56 DC Date/Time DO NOT enter until pt leaves facility: 06/19/19 13:58
[2019-06-19 12:58] VITALS: PULSE 70
== END 2019-06-19 13:58 | disposition home or self-care (01) | DRG 418 ==
LOC: 3E 00:34 → ED 00:34 → SUATTDRO 04:05 → 3E 04:44